=== PATIENT | female | born 1985 | race Caucasian/White ===

== ENCOUNTER 2016-09-24 21:03 | Inpatient (IN) | payer MEDICARE, OTHER ==
--- NOTE | ~2016-09-24 | PA ---
Unit #: [id number] #: [id number] Patient: LENY DAVIS [id number] [facility] [address] [place] [address] [id number] MR#: [id number] NAME: LENY DAVIS. ROOM: [facility] Age: 31 Sex: F Admission Date: 09/24/2016 : 1985 Date of Assessment: Attending Physician: Oswaldo Garcia M.D. Admitting Physician: Oswaldo Garcia M.D. Primary Care Physician: Generic Doctor Not In System PSYCHIATRIC ASSESSMENT INFORMANTS Patient, reliable; OLOP, reliable. CHIEF COMPLAINT "I need to get my head straight." HISTORY OF PRESENT ILLNESS Leny is a 31-year-old woman with a previous history of borderline personality disorder, bipolar disorder, and polysubstance dependence. She has been using heroin and spice erratically, but none recently. She says she has been off her medications and has been increasingly hopeless and helpless. Family reported that she was on Latuda and has been successful, but has been off this for about a year. She was unable to contract for safety and was admitted for stabilization. PAST PSYCHIATRIC HISTORY Previous admission in this facility as well as [facility], [facility], [facility], [facility], and the [facility] on multiple occasions. She was previously prescribed Latuda, but has been off her medication for sometime. FAMILY PSYCHIATRIC HISTORY There is a family history of schizophrenia, bipolar disorder, as well as extensive family history of alcoholism. SOCIAL HISTORY The patient is a high-school graduate, who is on long-term disability for multiple medical problems and lives in subsidized housing by herself. She lost custody of her son 4 years ago. She lives on a limited income. PAST MEDICAL HISTORY No chronic medical problems. MEDICATIONS None currently. ALLERGIES No known medication allergies. SUBSTANCE USE HISTORY As noted the patient has been using heroin and "spice," but none recently. MENTAL STATUS EXAMINATION Unit #: [id number] #: [id number] Patient: LENY DAVIS The patient presented as a disheveled woman, who appeared her stated age. Vital signs were temperature 97.7, blood pressure 121/84, respirations 19, pulse 88. Her speech was spontaneous and sparse, but easily understood. Musculoskeletal examination was calm. Her mood was irritable and labile with a congruent affect. She was alert and fully oriented. Memory and concentration were fair. Thought processes were goal directed with reports of psychosis, but no tate psychosis during my interview. She reported suicidal ideation with multiple plans and could not contract for safety. Insight and judgment, fair. Fund of knowledge and abstraction, fair. ASSETS AND LIABILITIES The patient knows local resources and presents voluntarily for treatment. Liabilities include noncompliance with treatment and erratic drug use. ADMITTING DIAGNOSES AXIS I: Bipolar disorder, mixed F31.4; polysubstance abuse. AXIS II: Borderline personality traits. AXIS III: None acute. AXIS IV: AXIS V: PSYCHIATRIC PLAN Leny was admitted and placed on suicide and psychosis precautions. She has not appear to require detox at this time. We will provide trazodone as needed for insomnia and Latuda 40 mg daily for mood stability. She will enroll in dual diagnosis groups and activities and physical examination and laboratory studies will be ordered and reviewed. TREATMENT GOALS Include resolution of SI, stabilization of mood, improvement in psychosis, improvement in insight, and improvement in coping skills. DISCHARGE PLANNING Follow up with [facility]. ESTIMATED LENGTH OF STAY 5 days. Dictated by... Oswaldo Garcia M.D. [facility]/khai TD: 09/27/2016 07:09 JOB #: [id number] Unit #: [id number] #: [id number] Patient: LENY DAVIS PSYCHIATRIC ASSESSMENT Page 1 of 1 X Oswaldo Garcia MD X PSYCHIATRIC ASSESSMENT
--- NOTE | ~2016-09-24 | DS ---
Unit #: [id number] #: [id number] Patient: LENY DAVIS [id number] [place] [address] [id number] MR#: [id number] NAME: LENY DAVIS. ROOM: [facility] Age: 31 Sex: F Admission Date: 09/24/2016 : 1985 Discharge Date: 09/28/2016 Attending Physician: Oswaldo Garcia M.D. Primary Care Physician: Generic Doctor Not In System DISCHARGE SUMMARY REASON FOR ADMISSION Leny is a 31-year-old woman with a history of borderline personality disorder, bipolar disorder, and substance abuse. She has been using heroin and spice for some time, but reports she has been off her medications with no current relapse. She was admitted for stabilization. HOSPITAL COURSE The patient was admitted and placed on suicide precautions. She did not appear to require detox and trazodone was provided for insomnia. Latuda was added for mood stability, and she enrolled in psychotherapy groups and activities. Latuda was increased to 80 mg at bedtime with good tolerance and improvement. Her mood is better with a brighter affect. On the date of discharge, she was able to contract for safety in the outpatient setting. DISCHARGE DIAGNOSES AXIS I: Bipolar mixed polysubstance abuse. AXIS II: Borderline personality traits. AXIS III: None acute. AXIS IV: AXIS V: DISCHARGE INSTRUCTIONS Follow up with [facility] for medication management and ongoing psychotherapy access. She was also invited to attend our intensive outpatient programing. DISCHARGE MEDICATIONS Latuda 80 mg at bedtime for mood stability, Vistaril 50 mg every 6 hours as needed for anxiety. CONDITION AT DISCHARGE Fair. PROGNOSIS Fair. DIET AND ACTIVITY Ad simran. Dictated by... Unit #: [id number] #: [id number] Patient: LENY DAVIS Oswaldo Garcia M.D. [facility]/khai TD: 11/22/2016 01:03 JOB #: [id number] DISCHARGE SUMMARY Page 1 of 1 X Oswaldo Garcia MD DISCHARGE SUMMARY
--- NOTE | ~2016-09-24 | PN ---
Unit #: [id number] #: [id number] Patient: LENY DAVIS [id number] [facility] [address] [place] [address] [id number] I MR#: [id number] NAME: LENY DAVIS ROOM: P261 Age: 31 Sex: F Admission Date: 09/24/2016 : 1985 Attending Physician: Oswaldo Garcia M.D. Admitting Physician: Oswaldo Garcia M.D. Primary Care Physician: Generic Doctor Not In System [facility] PROGRESS NOTES DATE 09/26/2016. DISCUSSION Leny says that she still feels very psychotic and labile this morning. She is disheveled appearance with congruent affect. She is alert and fully oriented. Memory and concentration fair. Thought processes rambling with ongoing psychosis. ASSESSMENT Bipolar mixed. PLAN Increased Latuda to 80 mg at bedtime. Dictated by... Oswaldo Garcia M.D. [facility]/gz TD: 09/27/2016 13:18 JOB #: [id number] [facility] PROGRESS NOTES Page 1 of 1 X Oswaldo Garcia MD X PROGRESS NOTE
--- NOTE | ~2016-09-24 | PN ---
Unit #: [id number] #: [id number] Patient: LENY DAVIS [id number] [facility] [address] [place] [address] [id number] I MR#: [id number] NAME: LENY DAVIS ROOM: P261 Age: 31 Sex: F Admission Date: 09/24/2016 : 1985 Attending Physician: Oswaldo Garcia M.D. Admitting Physician: Oswaldo Garcia M.D. Primary Care Physician: Generic Doctor Not In System [facility] PROGRESS NOTES DATE 09/27/2016 DISCUSSION Leny continues to be sleepy this morning and is tolerating her increased dose of Latuda from yesterday. She says her mood is better with a brighter range of affect and reduced psychosis. She appears disheveled and still stays in bed for much of the day, but has few complaints at this point. ASSESSMENT Bipolar disorder. PLAN Continue Latuda and anticipate discharge soon. Dictated by... Otto Mason/bakari TD: 09/29/2016 06:31 JOB #: [id number] [facility] PROGRESS NOTES Page 1 of 1 X Osawldo Garcia MD PROGRESS NOTE
--- NOTE | ~2016-09-24 | HP ---
Unit #: [id number] #: [id number] Patient: LENY DAVIS [id number] [place] [address] [id number] MR#: [id number] NAME: LENY DAVIS. ROOM: [facility] Age: 31 Sex: F Admission Date: 09/24/2016 : 1985 Attending Physician: Oswaldo Garcia M.D. Admitting Physician: Oswaldo Garcia M.D. Primary Care Physician: Generic Doctor Not In System HISTORY AND PHYSICAL HISTORY OF PRESENT ILLNESS Leny is a 31-year-old female admitted on 09/24/2016 to [facility] for suicidal ideation. PAST MEDICAL HISTORY None. PAST SURGICAL HISTORY None. ALLERGIES None. SOCIAL HISTORY Smokes 1/2 pack of cigarettes daily. Reports a history of binge alcohol use and history of heroin use and methamphetamine use. Most recent use of alcohol and illegal drugs was in August. She is currently single and living alone. FAMILY HISTORY Noncontributory. REVIEW OF SYSTEMS CONSTITUTIONAL: No fever or chills. HEENT: Denies any sore throat, ear pain or runny nose. CARDIOVASCULAR: Denies chest pain, irregular heart rhythm or palpitations. CHEST: Denies shortness of breath or cough. No hemoptysis. GASTROINTESTINAL: Denies nausea, vomiting, diarrhea or chronic constipation. ENDOCRINE: Denies history of increased thirst or urination. No recent significant weight loss or gain. GENITOURINARY: Denies dysuria, frequency, or hematuria. SKIN: Denies any rashes. HEMATOLOGIC: Denies history of increased bleeding or bruising. MUSCULOSKELETAL: Denies any hot, swollen joints. No generalized muscle pain. NEUROLOGIC: Denies problems with vision or speech. No frequent, severe headaches. No numbness, tingling or weakness in any extremities. Denies loss of bladder or bowel control. CURRENT MEDICATIONS None. Unit #: [id number] #: [id number] Patient: LENY DAVIS PHYSICAL EXAMINATION GENERAL: Alert, oriented, in no acute distress. VITAL SIGNS: Blood pressure 128/83, heart rate 76, respirations 18, temperature 98.2. HEIGHT: 5 feet 8. WEIGHT: 180 pounds. SKIN: Warm and dry without rash or lesion. HEENT: Normocephalic. TMs not viewed. Oral and nasal passages clear. Conjunctivae clear. PERRLA. EOMs intact. NECK: Supple without lymphadenopathy or thyromegaly. HEART: Regular rate and rhythm without murmur. LUNGS: Clear. ABDOMEN: Soft, nontender, without masses or hepatosplenomegaly. : Not done. EXTREMITIES: No evidence of cyanosis, clubbing or edema. Moves all without focal deficit. NEUROLOGICAL: Grossly within normal limits. Cranial Nerves: II: Visual torres are intact. III, IV AND : Extraocular movements are intact. Pupils are equal, round and reactive to light. V: Facial sensation is grossly normal. VII: Facial movements and expression are normal. VIII: Auditory acuity grossly intact. IX, X: Uvula is midline. Phonation is normal. XI: Patient shrugs shoulders and turns head normally. XII: Tongue protrudes in the midline. Sensory and Motor Function: Sensory and motor sensation is grossly normal. Motor: moves all extremities well. Coordination: Gait is normal. Deep Tendon Reflexes: Intact. IMPRESSION Psychiatric admission. RECOMMENDATIONS PSYCHIATRIC: Per psychiatrist. MEDICAL: No contraindications to participate in facility's activities. MEDICAL PROGNOSIS Good. MEDICAL CONDITION Stable. Dictated by... Lisa Pope/anirudh TD: 09/25/2016 17:58 JOB #: [id number] Unit #: [id number] #: [id number] Patient: LENY DAVIS HISTORY AND PHYSICAL Page 1 of 1 X BORA PALMA APRN HISTORY AND PHYSICAL
[~2016-09-24 21:03] MED LIST: BACTRIM DS TABL1 TA1 PO; ILOTYCIN1 GM OD; KEFLEX500 MG PO; KETOROLAC TROMET5 M1 OP; NO MEDICATIONS; ORUDIS75 M1 DOB; PHENERGAN25 MG PO; POLYTRIM EYE DR10 ML OP; ULTRAM PO; [UNRECOGNIZED DRUG - OTHER]
[2016-09-25 11:46] LABS: BASOPHIL% 0.4 % (0-2.5); EOSINOPHIL# 0.3 X10e3 (0-0.7); EOSINOPHIL% 3.3 % (0.0-7.0); HEMATOCRIT 41.2 % (35.0-45.0); HEMOGLOBIN 13.6 gm/dL (12.0-16.0); LYMPHOCYTE# 2.7 X10e3 (1.0-3.5); MEAN CORPUSCULAR HEMOGLOBIN 29.4 PG (28-34); MEAN CORPUSCULAR HGB CONC 33.1 g/dL (30-36); MEAN PLATELET VOLUME 7.5 FL (6.5-11.5); MONOCYTE# 0.5 X10e3 (0-1.0); NEUTROPHIL# 4.4 X10e3 (1.5-7.1); NEUTROPHIL% 56.3 % (40-75); PLATELET COUNT 377 X10e3 (140-420); RED BLOOD COUNT 4.63 X10e (3.90-5.30); RED CELL DISTRIBUTION WIDTH 13.4 % (11.0-15.5); WHITE BLOOD COUNT 7.8 X10e3 (4.0-10.5)
[2016-09-25 12:05] LABS: DIFF IND NO
[2016-09-25 12:13] LABS: ALBUMIN SERUM 3.5 g/dL (3.5-5.0); BILIRUBIN,TOTAL 0.7 mg/dL (0.2-2.0); BUN/CREATININE RATIO 13.33; CALCIUM SERUM 8.9 mg/dL (8.4-10.2); CREATININE SERUM 0.6 mg/dL (0.6-1.4); GLOM FILT RATE Estimated 121.5 mL/min (>60); POTASSIUM 3.9 mmol/L (3.5-5.1); PROTEIN TOTAL SERUM 6.4 g/dL (6.0-8.3)
[2016-09-25 12:30] LABS: AMPHETAMINE POS (NEG); BARBITURATES NEG (NEG); BENZODIAZEPINES NEG (NEG); COCAINE POS (NEG); MARIJUANA POS (NEG); OPIATES NEG (NEG); TRICYCLIC ANTIDEPRESSANTS POS (NEG); U METHADONE NEG (NEG)
== END 2016-09-28 12:45 | disposition home or self-care (01) | DRG 885 ==
LOC: P2L 21:03
PROVIDERS: Psychiatry & Neurology Psychiatry
DX: F31.60 Bipolar disorder, current episode mixed, unspecified (principal); F60.3 Borderline personality disorder; Z81.8 Family history of other mental and behavioral disorders; Z81.1 Family history of alcohol abuse and dependence; F17.210 Nicotine dependence, cigarettes, uncomplicated
CPT/HCPCS: 80053; 80307; 84703; 85025

== ENCOUNTER 2016-10-07 20:28 | Emergency (ER) | payer MEDICARE, OTHER ==
[2016-10-07 21:18] LABS: BASOPHIL% 0.5 % (0-2.5); EOSINOPHIL# 0.2 X10e3 (0-0.7); EOSINOPHIL% 2.2 % (0.0-7.0); LYMPHOCYTE# 2.7 X10e3 (1.0-3.5); LYMPHOCYTE% 34.2 % (17.0-45.0); MEAN CELL VOLUME 89.1 FL (83-96); MEAN CORPUSCULAR HEMOGLOBIN 30.4 PG (28-34); MEAN CORPUSCULAR HGB CONC 34.1 g/dL (30-36); MEAN PLATELET VOLUME 6.7 FL (6.5-11.5); MONOCYTE# 0.4 X10e3 (0-1.0); MONOCYTE% 5.5 % (3.0-12.0); NEUTROPHIL# 4.5 X10e3 (1.5-7.1); NEUTROPHIL% 57.6 % (40-75); PLATELET COUNT 393 X10e3 (140-420); RED CELL DISTRIBUTION WIDTH 13.8 % (11.0-15.5); WHITE BLOOD COUNT 7.8 X10e3 (4.0-10.5)
[2016-10-07 21:19] LABS: DIFF IND NO
[2016-10-07 21:42] LABS: BLOOD UREA NITROGEN 8 mg/dL (9-23); CALCIUM SERUM 8.9 mg/dL (8.4-10.2); CARBON DIOXIDE 23 mmol/L (22-31); CHLORIDE 106 mmol/L (100-111); CREATININE SERUM 0.8 mg/dL (0.6-1.4); GLOM FILT RATE Estimated 98.3 mL/min (>60); GLUCOSE FASTING 76 mg/dL (70-110); POTASSIUM 3.6 mmol/L (3.5-5.1); SODIUM 138 mmol/L (135-145)
[2016-10-07 21:43] LABS: AMPHETAMINE POS (NEG); BARBITURATES NEG (NEG); BENZODIAZEPINES NEG (NEG); COCAINE NEG (NEG); MARIJUANA NEG (NEG); OPIATES NEG (NEG); TRICYCLIC ANTIDEPRESSANTS NEG (NEG); U METHADONE NEG (NEG)
[2016-10-07 21:49] LABS: ALCOHOL BLOOD <5 mg/dL (0)
== END 2016-10-08 00:30 ==
LOC: CED 20:28
PROVIDERS: Emergency Medicine
DX: R44.0 Auditory hallucinations (principal); F15.10 Other stimulant abuse, uncomplicated; F31.9 Bipolar disorder, unspecified; F17.200 Nicotine dependence, unspecified, uncomplicated
CPT/HCPCS: 36415; 80048; 80307; 85025; 99285; G0480

== ENCOUNTER 2016-10-08 01:25 | Inpatient (IN) | payer MEDICARE, OTHER ==
--- NOTE | ~2016-10-08 | HP ---
Unit #: [id number] #: [id number] Patient: LENY DAVIS [id number] [facility] [address] [place] [address] [id number] I MR#: [id number] NAME: LENY DAVIS ROOM: P208 Age: 31 Sex: F Admission Date: 10/08/2016 : 1985 Attending Physician: Oswaldo Garcia M.D. Admitting Physician: Oswaldo Garcia M.D. Primary Care Physician: Generic Doctor Not In System HISTORY AND PHYSICAL HISTORY OF PRESENT ILLNESS Leny is a 31 year old admitted to [address] [place] [address] with depression and verbalizing wanting to hurt herself. The patient was seen and H and P dated 09/25/2016 was reviewed. This is current. No changes. Please see H and P dated 09/25/2016. Dictated by... Karena Whitfield P.A.-C. for Otto Armstrong/jeffery TD: 10/09/2016 07:45 JOB #: [id number] HISTORY AND PHYSICAL Page 1 of 1 X Karena Whitfield HISTORY AND PHYSICAL
--- NOTE | ~2016-10-08 | PA ---
Unit #: [id number] #: [id number] Patient: LENY DAVIS [id number] [place] [address] [id number] I MR#: [id number] NAME: LENY DAVIS. ROOM: P208 Age: 31 Sex: F Admission Date: 10/08/2016 : 1985 Date of Assessment: 10/09/2016 Attending Physician: Oswaldo Garcia M.D. Admitting Physician: Oswaldo Garcia M.D. Primary Care Physician: Generic Doctor Not In System PSYCHIATRIC ASSESSMENT DATE OF SERVICE 10/09/2016. INFORMANTS The patient, partially reliable; OLOP, reliable. CHIEF COMPLAINT Suicidal ideation. HISTORY OF PRESENT ILLNESS Leny is a 31-year-old woman with several admissions to this facility, who reported increasing helplessness, and the onset of suicidal ideation. She had also relapsed onto some drug abuse problems. She is unable to contract for safety and was readmitted for stabilization. PAST PSYCHIATRIC HISTORY Leny has had multiple admissions to this facility as well as [facility], and [facility]. She is erratically compliant with outpatient medications. FAMILY PSYCHIATRIC HISTORY There is a family history of schizophrenia, bipolar disorder, and alcoholism. SOCIAL HISTORY The patient is on long-term disability and is a high school graduate. She lives alone in housing and lost custody of her son 4 years ago. PAST MEDICAL HISTORY No chronic medical problems. MEDICATIONS None currently. ALLERGIES No known medication allergies. SUBSTANCE USE HISTORY The patient has a history of polysubstance dependence. MENTAL STATUS EXAMINATION Leny presented as a disheveled woman, appearing her stated age. She was cooperative with the examination. Her speech was spontaneous and soft, Unit #: [id number] #: [id number] Patient: LENY DAVIS but easily understood. Musculoskeletal examination was calm. Her mood was irritable with a congruent affect. She was alert and fully oriented. Her memory and concentration were fair to good. Her thought processes were goal directed with no appearance of psychosis. She did continue to report suicidal ideation and could not contract for safety outside of the hospital. Her insight and judgment were fair. Fund of knowledge and abstraction were fair. ASSETS AND LIABILITIES The patient knows local resources and presents voluntarily for treatment. Liabilities include difficulty maintaining sobriety, noncompliance with outpatient medications. ADMITTING DIAGNOSES AXIS I: Opiate dependence, amphetamine abuse, Bipolar disorder, depressed. AXIS II: Borderline personality disorder. AXIS III: None acute. AXIS IV: AXIS V: PSYCHIATRIC PLAN The patient was admitted and placed on suicide precautions and the opioid detox protocol. Latuda was restarted with the addition of Vistaril as needed for anxiety. Physical examination and laboratory studies were ordered and reviewed. TREATMENT GOALS Resolution of intoxication, resolution of SI, improvement in insight, and improvement in coping skills. DISCHARGE PLANNING Follow up with [facility] and outpatient resources. ESTIMATED LENGTH OF STAY 5 days. Dictated by... Oswaldo Garcia M.D. CHARLES/khai TD: 11/30/2016 23:26 JOB #: [id number] PSYCHIATRIC ASSESSMENT Page 1 of 1 X Oswaldo Garcia MD X PSYCHIATRIC ASSESSMENT
--- NOTE | ~2016-10-08 | DS ---
Unit #: [id number] #: [id number] Patient: LENY DAVIS [id number] [facility] [address] [place] [address] [id number] I MR#: [id number] NAME: LENY DAVIS. ROOM: [facility] Age: 31 Sex: F Admission Date: 10/08/2016 : 1985 Discharge Date: 10/11/2016 Attending Physician: Oswaldo Garcia M.D. Primary Care Physician: Generic Doctor Not In System DISCHARGE SUMMARY REASON FOR ADMISSION Leny is a 31-year-old woman with a history bipolar disorder and substance dependence. She was unable to contract for safety and was readmitted for stabilization. HOSPITAL COURSE Patient was admitted and placed on suicide precautions and on the opiate detox protocol. Latuda was restarted. She had an uneventful period of inpatient detox with no significant adverse side effects from her medication and moderate to mild detox symptomatology. On the discharge she was able to contract for safety once more in the outpatient setting. DISCHARGE DIAGNOSIS AXIS I: Opiate dependence, amphetamine abuse, bipolar disorder. AXIS II: Borderline personality disorder. AXIS III: None acute. INSTRUCTIONS Patient is to follow up with the [facility] at this facility for chemical dependence and mental health treatment. DISCHARGE MEDICATIONS Latuda 80 mg daily for mood disorder. Vistaril 50 mg every 6 hours as needed for anxiety. CONDITION ON DISCHARGE Improved. PROGNOSIS Fair. DIET AND ACTIVITY Ad simran Dictated by... Oswaldo Garcia M.D. [facility]/gz Unit #: [id number] #: [id number] Patient: LENY DAVIS TD: 11/24/2016 14:03 JOB #: [id number] DISCHARGE SUMMARY Page 1 of 1 X Oswaldo Garcia MD X DISCHARGE SUMMARY
[2016-10-08 09:42] LABS: BASOPHIL% 0.4 % (0-2.5); EOSINOPHIL# 0.3 X10e3 (0-0.7); HEMATOCRIT 39.8 % (35.0-45.0); HEMOGLOBIN 13.5 gm/dL (12.0-16.0); LYMPHOCYTE# 3.3 X10e3 (1.0-3.5); LYMPHOCYTE% 44.7 % (17.0-45.0); MEAN CELL VOLUME 88.6 FL (83-96); MEAN CORPUSCULAR HEMOGLOBIN 29.9 PG (28-34); MEAN CORPUSCULAR HGB CONC 33.8 g/dL (30-36); MEAN PLATELET VOLUME 7.2 FL (6.5-11.5); MONOCYTE# 0.5 X10e3 (0-1.0); MONOCYTE% 6.4 % (3.0-12.0); NEUTROPHIL# 3.3 X10e3 (1.5-7.1); NEUTROPHIL% 44.5 % (40-75); PLATELET COUNT 397 X10e3 (140-420); RED CELL DISTRIBUTION WIDTH 13.7 % (11.0-15.5); WHITE BLOOD COUNT 7.3 X10e3 (4.0-10.5)
[2016-10-08 09:51] LABS: DIFF IND NO
[2016-10-08 10:15] LABS: ALBUMIN SERUM 3.4 g/dL (3.5-5.0); BILIRUBIN,TOTAL 0.5 mg/dL (0.2-2.0); BUN/CREATININE RATIO 12.85; CALCIUM SERUM 8.9 mg/dL (8.4-10.2); CREATININE SERUM 0.7 mg/dL (0.6-1.4); GLOM FILT RATE Estimated 115.5 mL/min (>60); POTASSIUM 3.8 mmol/L (3.5-5.1); PROTEIN TOTAL SERUM 6.2 g/dL (6.0-8.3)
== END 2016-10-11 16:00 | DRG 897 ==
LOC: P2S 01:25
PROVIDERS: Psychiatry & Neurology Psychiatry
PROC: HZ2ZZZZ Detoxification Services for Substance Abuse Treatment (ICD-10-PCS; principal; 2016-10-08)
DX: F11.20 Opioid dependence, uncomplicated (principal); F31.89 Other bipolar disorder; F17.210 Nicotine dependence, cigarettes, uncomplicated; F15.10 Other stimulant abuse, uncomplicated; F60.3 Borderline personality disorder
CPT/HCPCS: 36415; 80048; 80053; 80307; 84703; 85025; G0480

== ENCOUNTER 2016-10-28 18:05 | Inpatient (IN) | payer MEDICARE, OTHER ==
--- NOTE | ~2016-10-28 | PA ---
Unit #: [id number] #: [id number] Patient: LENY DIANA [id number] [facility] [address] [place] [address] [id number] I MR#: [id number] NAME: LENY DIANA ROOM: 13 Age: 31 Sex: F Admission Date: 10/28/2016 : 1985 Date of Assessment: Attending Physician: Greyson Allison M.D. Admitting Physician: Greyson Allison M.D. Primary Care Physician: Generic Doctor Not In System PSYCHIATRIC ASSESSMENT INFORMANTS The patient reliability, fair; chart reliability, good. CHIEF COMPLAINT Psychosis, hearing things, and seeing things. HISTORY OF PRESENT ILLNESS Ms. Leny Diana is a 31-year-old female, admitted with the above-mentioned complaint. The patient has a history of previous admission with similar complaint, history of hearing voices, voices telling her to harm herself. The patient feels that the Bin is talking to her. The patient reported devidafne is talking to her. The patient has a history of schizophrenia. Completed 10th grade. Lots of drug activity. 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 The patient was recently kicked brother out for meth use. The patient reports that she is distant from her family. The patient has a history of numerous treatment at [facility] and [facility]. Currently, having suicidal ideation and command hallucination. The patient also admitted using amphetamine. Needing inpatient admission at this time for psychiatric stabilization. PAST PSYCHIATRIC HISTORY Remarkable for history of multiple treatment at [facility] in 2012 and 2016, last admission 10/13/2016. FAMILY HISTORY AND SOCIAL HISTORY Poor support system. No history of any abuse. MEDICAL HISTORY Unremarkable for any chronic medical condition. Musculoskeletal; muscle strength and tone, no atrophy or abnormal movement. Gait normal. MEDICATION HISTORY The patient is on Latuda and Vistaril. ALLERGIES No known drug allergies. SUBSTANCE ABUSE HISTORY The patient reported tobacco use, age of onset 12; alcohol, age of onset 11; marijuana, age of onset 13; crack cocaine, age of onset 17; opioid, age of onset 27; methamphetamine, age of onset 27. The patient also reported history of IV drug use, history of hepatitis, blackouts. Unit #: [id number] #: [id number] Patient: LENY DIANA REVIEW OF SYSTEMS HEENT: Eyes, clear. Ears, nose, mouth, and throat; clear. CARDIOVASCULAR: Unremarkable. RESPIRATORY: Unremarkable. GI: Unremarkable. : Unremarkable. SKIN: Unremarkable. LYMPH NODE: Unremarkable. NEUROLOGIC: Unremarkable. ENDOCRINE: Unremarkable. HEMATOLOGIC: Unremarkable. ALLERGIC/IMMUNOLOGIC: Unremarkable. MUSCULOSKELETAL: Muscle strength and tone, no atrophy or abnormal movement. Gait normal. MENTAL STATUS EXAMINATION CONSTITUTIONAL: Measurement of vital signs; temperature 98.4, pulse 109, respirations 20, oxygen saturation 100%, and blood pressure 122/81. Height is 5 feet 7 inches, weight 195 pounds. GENERAL APPEARANCE: The patient dressed casually. No facial deformity noted. MUSCULOSKELETAL: Please see above. PSYCHIATRIC EXAMINATION Description of speech, slow. Description of thought process; circumstantial, guarded, paranoid, delusional, attending to internal stimuli, suicidal ideation, command hallucination, substance abuse. Description of the patient's judgment; concerning everyday activity, poor. Social situation, poor. Concerning psychiatric condition, poor. Complete mental status examination; oriented in time, place, and person. Recent and remote memory, poor. Attention span and concentration, fair. Language, able to name object and repeat phrases. Fund of knowledge, aware of current event and passive vocabulary intact. Mood and affect, sad and dysphoric. Insight and judgment, fair to poor. ASSETS AND LIABILITIES Assets; the patient articulate and able to take care of her ADL. Liability; history of depression, psychosis, schizophrenia, substance abuse. ADMITTING DIAGNOSES Psychiatric: 1. Schizophrenia, chronic paranoid type, F20.0. 2. Amphetamine use disorder, moderate, F15.20. Secondary diagnosis: Deferred. Medical diagnosis: None. Stressors: Psychosocial stressors. PSYCHIATRIC PLAN AND TREATMENT GOAL 1. Advised to admit the patient on the inpatient unit. Provide safe, supportive, and structured environment. 2. Ordered labs; CBC, CMP, UA, and UDS. 3. Precaution for aggression, psychosis. 4. The patient to attend all the programing on the inpatient unit, group Unit #: [id number] #: [id number] Patient: LENY DIANA therapy, individual therapy, medication management. Advised to resume home medication; Latuda 80 mg at bedtime and Vistaril 50 mg q.6 hours p.r.n. If needed, consider further adjustment of medication. Treatment goal to attain euthymic mood, gain insight into her problem, and learn coping skills. DISCHARGE PLAN Plan to stabilize the patient and consider followup in outpatient program. ESTIMATED LENGTH OF STAY 5 days. Dictated by... Otto Anna/khai TD: 10/30/2016 02:33 JOB #: [id number] PSYCHIATRIC ASSESSMENT Page 1 of 1 X Greyson Allison MD X PSYCHIATRIC ASSESSMENT
--- NOTE | ~2016-10-28 | PN ---
Unit #: [id number] #: [id number] Patient: LENY DIANA [id number] [facility] [address] [place] [address] [id number] I MR#: [id number] NAME: LENY DIANA. ROOM: 13 Age: 31 Sex: F Admission Date: 10/28/2016 : 1985 Attending Physician: Greyson Allison M.D. Admitting Physician: Greyson Allison M.D. Primary Care Physician: Generic Doctor Not In System [facility] PROGRESS NOTES DATE OF SERVICE 10/29/2016 DISCUSSION Ms. Leny Diana is a 31-year-old female seen on 10/29/2016. The patient interviewed, chart reviewed. Obtained information from nursing staff. The patient continues to be isolative, guarded, flat affect. The patient reported hearing voices. Still having suicidal ideation. Compliant with medication. Complete Review of Systems: Unremarkable. MENTAL STATUS EXAMINATION General Appearance: The patient dressed casually. Attention span, concentration: Poor. Oriented in place and person. Mood and affect labile. Speech: Monotone. Thought process: Circumstantial. The patient guarded, paranoid, suicidal ideation. Recent and remote memory: Poor. Insight and judgment: Poor. DIAGNOSES 1. Psychosis not otherwise specified. 2. Depressive disorder not otherwise specified. ASSESSMENT/PLAN Advised to continue with current medication and therapeutic protocol. If needed, consider further adjustment of medication. Dictated by... Otto Anna/jeffery TD: 10/30/2016 07:06 JOB #: [id number] Unit #: [id number] #: [id number] Patient: LENY DIANA [facility] PROGRESS NOTES Page 1 of 1 X Greyson Allison MD PROGRESS NOTE
--- NOTE | ~2016-10-28 | CO ---
Unit #: [id number] #: [id number] Patient: LENY DAVIS [id number] [place] [address] [id number] MR#: [id number] NAME: LENY DAVIS ROOM: P113 Age: 31 Sex: F Admission Date: 10/28/2016 : 1985 Attending Physician: Greyson Allison M.D. Primary Care Physician: Generic Doctor Not In System Consultation Date: 10/29/2016 CONSULTATION REPORT SUBJECTIVE Leny is a 31-year-old who reported that she had stepped on glass 4 or 5 days prior to admission. This was addressed under her H and P dated 10/29/2016. Please see H and P dated 10/29/2016. Dictated by... Karena Whitfield P.A.-C. for Otto Armstrong/khai TD: 11/03/2016 01:18 JOB #: [id number] CONSULTATION REPORT Page 1 of 1 X Karena Whitfield CONSULTATION REPORT
--- NOTE | ~2016-10-28 | DS ---
Unit #: [id number] #: [id number] Patient: TANI DAVIS [id number] [facility] [address] [place] [address] [id number] I MR#: [id number] NAME: TANI DAVIS. [facility] Age: 31 Sex: F Admission Date: 10/28/2016 : 1985 Discharge Date: 11/01/2016 Attending Physician: Greyson Allison M.D. Primary Care Physician: Generic Doctor Not In System DISCHARGE SUMMARY REASON FOR ADMISSION Aggression, psychosis, and substance abuse. DIAGNOSTIC STUDIES LABORATORY RESULTS: Urine drug screen positive for benzodiazepine, cocaine, amphetamine, and marijuana. HOSPITAL COURSE The patient was admitted to inpatient unit on 10/28/2016 and discharged on 11/01/2016. The patient was treated on the inpatient unit with group therapy, individual therapy, medication management, detox protocol, and detox monitoring. The patient responded well with the above modalities of treatment and continued on her home medication. Subsequently, the patient was discharged with a plan to follow up in outpatient program. DISCHARGE MEDICATIONS Vistaril 50 mg q.6 hours p.r.n. for anxiety and Latuda 80 mg at bedtime for psychosis and mood stabilization. DISCHARGE DIAGNOSES Psychiatric: Schizophrenia, chronic paranoid type, F20.0; amphetamine use disorder, moderate, F15.20; cocaine use disorder, severe, F14.20; and cannabis abuse, moderate, F12.20. Secondary diagnosis: Deferred. Medical diagnosis: Obesity. Stressors: Psychosocial stressors. DISCHARGE INSTRUCTIONS The patient to follow up in outpatient program as per social insurance adviser. CONDITION ON DISCHARGE The patient was pleasant and cooperative. Denied any psychotic symptoms or any suicidal ideation. PROGNOSIS Guarded. DIET AND ACTIVITY As tolerated. Unit #: [id number] #: [id number] Patient: TANI DAVIS Dictated by... Greyson Allison M.D. SZC/debbil TD: 11/01/2016 18:22 JOB #: [id number] DISCHARGE SUMMARY Page 1 of 1 X Greyson Allison MD X DISCHARGE SUMMARY
--- NOTE | ~2016-10-28 | DS ---
Unit #: [id number] #: [id number] Patient: TANI DAVIS [id number] [place] [address] [id number] I MR#: [id number] NAME: TANI DAVIS. ROOM: [facility] Age: 31 Sex: F Admission Date: 10/28/2016 : 1985 Discharge Date: Attending Physician: Greyson Allison M.D. Primary Care Physician: Generic Doctor Not In System DISCHARGE SUMMARY REASON FOR ADMISSION Psychosis and schizophrenia. DIAGNOSTIC STUDIES LABORATORY RESULTS: Unremarkable. HOSPITAL COURSE The patient was admitted to inpatient unit on 10/07/2016 and discharged on 10/21/2016. The patient was treated with group therapy, individual therapy, medication management. The patient responded well with the above modalities of treatment. The patient was continued on her medication of Latuda, Vistaril, Desyrel. Subsequently, the patient was discharged with a plan to follow up in outpatient program. DISCHARGE MEDICATIONS Latuda 80 mg daily for psychosis and mood stabilization, Vistaril 50 mg as needed p.r.n. for anxiety, Desyrel 100 mg at bedtime for sleep p.r.n. DISCHARGE DIAGNOSES Psychiatric: 1. Schizophrenia, chronic paranoid type, F20.0. 2. Amphetamine use disorder, moderate, F15.20. Secondary diagnosis: Deferred. Medical diagnosis: None. Stressors: Psychosocial stressors. DISCHARGE INSTRUCTIONS The patient to follow up in outpatient clinic as per rn social work. CONDITION ON DISCHARGE The patient was pleasant and cooperative. Denied any psychotic symptom or any suicidal ideation. PROGNOSIS Guarded. DIET AND ACTIVITY As tolerated. Dictated by... Unit #: [id number] #: [id number] Patient: TANI DAVIS Greyson Allison M.D. SZC/modl TD: 10/29/2016 22:28 JOB #: [id number] DISCHARGE SUMMARY Page 1 of 1 X Greyson Allison MD DISCHARGE SUMMARY
--- NOTE | ~2016-10-28 | PN ---
Unit #: [id number] #: [id number] Patient: LENY DIANA [id number] [facility] [address] [place] [address] [id number] I MR#: [id number] NAME: LENY DIANA. ROOM: 13 Age: 31 Sex: F Admission Date: 10/28/2016 : 1985 Attending Physician: Greyson Allison M.D. Admitting Physician: Greyson Allison M.D. Primary Care Physician: Generic Doctor Not In System [facility] PROGRESS NOTES DATE 10/31/2016 DISCUSSION Ms. Leny Diana is a 31-year-old female seen on 10/31/2016. The patient interviewed, chart reviewed. Obtained information from nursing staff. The patient was compliant and cooperative. Mood sad, dysphoric, flat affect, guarded. The patient reported mood is getting better denied any side effects from medication. The patient's vital signs 97.3, 88, 14, 111/79. The patient continues to be seclusive, isolative, guarded, flat affect, intermittently pacing on the unit, anxious, requesting Vistaril p.r.n. was affective. Complete review of systems unremarkable. MENTAL STATUS EXAMINATION General appearance, the patient dressed casually. Attention span and concentration poor. Oriented to time, place and person. Mood and affect labile. Speech rapid. Thought process circumstantial. The patient reported having anxiety, depression, passive SI. Denied any active SI or plan, guarded. Recent and remote memory poor. Insight and judgement poor. DIAGNOSES Schizophrenia chronic paranoid type Amphetamine use disorder moderate ASSESSMENT/PLAN Advise to continue with current medication and therapeutic protocol. If needed consider further adjustment of medication. Dictated by... Otto Anna/natty TD: 11/01/2016 05:23 JOB #: [id number] Unit #: [id number] #: [id number] Patient: LENY DIANA [facility] PROGRESS NOTES Page 1 of 1 X Greyson Allison MD X PROGRESS NOTE
--- NOTE | ~2016-10-28 | PN ---
Unit #: [id number] #: [id number] Patient: LENY DIANA [id number] [facility] [address] [place] [address] [id number] I MR#: [id number] NAME: LENY DIANA. ROOM: P113 Age: 31 Sex: F Admission Date: 10/28/2016 : 1985 Attending Physician: Greyson Allison M.D. Admitting Physician: Greyson Allison M.D. Primary Care Physician: Generic Doctor Not In System [facility] PROGRESS NOTES DATE OF SERVICE: 10/30/2016 DISCUSSION Ms. Leny Diana is a 31-year-old female, seen on 10/30/2016. The patient interviewed, chart reviewed, and obtained information from nursing staff. The patient is compliant and cooperative. Mood is sad, dysphoric, flat affect, guarded and paranoid, and depressed. Vital signs; temperature 97.4, pulse 114, respirations 16, blood pressure 110/60. The patient continues to be seclusive, isolative, flat affect, withdrawn, sad, and depressed. REVIEW OF SYSTEMS Complete review of systems unremarkable. MENTAL STATUS EXAMINATION General appearance, the patient dressed casually. Attention span and concentration fair. Oriented in place and person. Mood and affect, sad, depressed, suicidal ideation, guarded, and paranoid. Recent and remote memory, poor. Insight and judgment, poor. DIAGNOSES 1. Schizophrenia, chronic, paranoid type. 2. Amphetamine use disorder, moderate. ASSESSMENT AND PLAN Advised to continue with current medication and therapeutic protocol. If needed, consider further adjustment of medication. Dictated by... Otto Anna/khai TD: 11/01/2016 03:01 JOB #: [id number] Unit #: [id number] #: [id number] Patient: LENY DIANA PROGRESS NOTES Page 1 of 1 X Greyson Allison MD PROGRESS NOTE
--- NOTE | ~2016-10-28 | HP ---
Unit #: [id number] #: [id number] Patient: LENY DAVIS [id number] [place] [address] [id number] I MR#: [id number] NAME: LENY DAVIS. ROOM: 13 Age: 31 Sex: F Admission Date: 10/28/2016 : 1985 Attending Physician: Greyson Allison M.D. Admitting Physician: Greyson Allison M.D. Primary Care Physician: Generic Doctor Not In System HISTORY AND PHYSICAL HISTORY OF PRESENT ILLNESS Leny is a 31 year old admitted to [address] [place] [address] reporting auditory hallucinations. PAST MEDICAL HISTORY 1. Long history of illicit substance abuse to include spice, heroin, crack cocaine and pain pills. She also has a history of IV drug use. 2. Hepatitis C. PAST SURGICAL HISTORY Nothing reported. ALLERGIES No known drug allergies. SOCIAL HISTORY Smokes one pack per day. Drinks alcohol on occasion. Admits to a long history of illicit substance abuse to include IV drugs. FAMILY HISTORY Medically noncontributory. REVIEW OF SYSTEMS CONSTITUTIONAL: No fever or chills. HEENT: Denies any sore throat, ear pain or runny nose. CARDIOVASCULAR: Denies chest pain, irregular heart rhythm or palpitations. CHEST: Denies shortness of breath or cough. No hemoptysis. GASTROINTESTINAL: Denies nausea, vomiting, diarrhea or chronic constipation. ENDOCRINE: Denies history of increased thirst or urination. No recent significant weight loss or gain. GENITOURINARY: Denies dysuria, frequency, or hematuria. SKIN: She does report that she stepped on glass four to five days prior to this admission. She has been trying to dig the piece out of the bottom of her foot since that time. She reports no increase temperatures and has no difficulty ambulating. HEMATOLOGIC: Denies history of increased bleeding or bruising. MUSCULOSKELETAL: Denies any hot, swollen joints. No generalized muscle pain. NEUROLOGIC: Denies problems with vision or speech. No frequent, severe headaches. No numbness, tingling or weakness in any extremities. Denies loss of bladder or bowel control. Unit #: [id number] #: [id number] Patient: LENY DAVIS CURRENT MEDICATIONS 1. Vistaril p.r.n. 2. Milk of Magnesia p.r.n. 3. Maalox p.r.n. 4. Tylenol p.r.n. 5. Desyrel p.r.n. 6. Latuda 80 mg q.h.s. 7. Nicotine patch 14 mg q day PHYSICAL EXAMINATION GENERAL: Alert, well-nourished, appearing much much older than her stated age of 31, in no apparent distress. VITAL SIGNS: Blood pressure 122/80, heart rate 80, respirations 16, temperature 98.6. WEIGHT: 195 pounds. HEIGHT: 5'7". SKIN: Warm and dry without rash. She has a small open area along the ball of her left foot. There is no increased redness or swelling noted. No foreign body is noted. HEENT: Normocephalic. TMs not viewed. Oral and nasal passages clear. Conjunctivae clear. Pupils equal, round and reactive to light and accommodation. Extraocular movements intact. NECK: Supple without lymphadenopathy or thyromegaly. HEART: Regular rate and rhythm without murmur. LUNGS: Clear. ABDOMEN: Soft, nontender. : Not done. EXTREMITIES: No evidence of cyanosis, clubbing or edema. Moves all extremities without focal deficit. NEUROLOGICAL: Grossly within normal limits. Cranial Nerves: II: Visual torres are intact. III, IV AND : Extraocular movements are intact. Pupils are equal, round and reactive to light. V: Facial sensation is grossly normal. VII: Facial movements and expression are normal. VIII: Auditory acuity grossly intact. IX, X: Uvula is midline. Phonation is normal. XI: Patient shrugs shoulders and turns head normally. XII: Tongue protrudes in the midline. Sensory and Motor Function: Sensory and motor sensation is grossly normal. Motor: moves all extremities well. Coordination: Gait is normal. Deep Tendon Reflexes: Intact. IMPRESSION 1. Psychiatric admission 2. The patient reports stepping on glass four to five days prior to admission. She thinks she may still have a piece of glass in her foot. 3. Keep the foot clean with soap and water. She knows that she is can soak it in the sink in her room. No plans to look for or remove the glass in her foot. MEDICAL PROGNOSIS Good. MEDICAL CONDITION Stable. Unit #: [id number] #: [id number] Patient: LENY DAVIS Veda epps. Karena Whitfield P.A.-C. for Otto Armstrong/natty TD: 10/29/2016 22:10 JOB #: [id number] HISTORY AND PHYSICAL Page 1 of 1 X Karena Whitfield PA X HISTORY AND PHYSICAL
== END 2016-11-01 10:10 | disposition home or self-care (01) | DRG 885 ==
LOC: P1S 18:05
DX: F20.0 Paranoid schizophrenia (principal); F14.20 Cocaine dependence, uncomplicated; F15.20 Other stimulant dependence, uncomplicated; B19.20 Unspecified viral hepatitis C without hepatic coma; F17.210 Nicotine dependence, cigarettes, uncomplicated; F12.20 Cannabis dependence, uncomplicated; E66.9 Obesity, unspecified; Z68.30 Body mass index [BMI] 30.0-30.9, adult

== ENCOUNTER 2016-11-12 13:00 | Inpatient (IN) | payer MEDICARE, OTHER ==
--- NOTE | ~2016-11-12 | DS ---
Unit #: [id number] #: [id number] Patient: TANI DAVIS [id number] [facility] [address] [place] [address] [id number] I MR#: [id number] NAME: TANI DAVIS. ROOM: P122 Age: 31 Sex: F Admission Date: 11/12/2016 : 1985 Discharge Date: 11/15/2016 Attending Physician: Greysno Allison M.D. DISCHARGE SUMMARY REASON FOR ADMISSION Hallucination, depression, and substance abuse. DIAGNOSTIC STUDIES LABORATORY RESULTS: Remarkable for urine drug screen positive for benzodiazepine, amphetamine, and marijuana. HOSPITAL COURSE The patient was admitted to [facility] and treated with group therapy, individual therapy, and medication management. The patient responded well with the above modalities of treatment. Subsequently, the patient was discharged with a plan to follow up in outpatient program. DISCHARGE MEDICATIONS Trazodone 100 mg at bedtime for sleep, Neurontin 300 mg t.i.d. for anxiety, Latuda 80 mg daily for mood stabilization and psychosis, and Vistaril 50 mg q.6 hours p.r.n. for severe anxiety. 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 Secondary diagnosis: Deferred. Medical diagnosis: None. Stressors: Psychosocial stressors. DISCHARGE INSTRUCTIONS The patient to follow up in outpatient clinic as per administrator social welfare. CONDITION ON DISCHARGE The patient was pleasant and cooperative. Denied any psychotic symptom or any suicidal ideation. PROGNOSIS Guarded. DIET AND ACTIVITY As tolerated. Unit #: [id number] #: [id number] Patient: TANI DAVIS Dictated by... Greyson Allison M.D. SZC/debbil TD: 11/28/2016 17:30 JOB #: [id number] DISCHARGE SUMMARY Page 1 of 1 X Greyson Allison MD X DISCHARGE SUMMARY
--- NOTE | ~2016-11-12 | HP ---
Unit #: [id number] #: [id number] Patient: TANI DAVIS [id number] [place] [address] [id number] I MR#: [id number] NAME: TANI DAVIS. ROOM: P122 Age: 31 Sex: F Admission Date: 11/12/2016 : 1985 Attending Physician: Greyson Allison M.D. Admitting Physician: Greyson Allison M.D. Primary Care Physician: Primary Care Physician No HISTORY AND PHYSICAL HISTORY OF PRESENT ILLNESS The patient is a 31-year-old female who states she is here due to paranoid schizophrenia. PAST MEDICAL HISTORY None. PAST SURGICAL HISTORY None. ALLERGIES None. SOCIAL HISTORY Positive for smoking, alcohol and drugs. FAMILY HISTORY Noncontributory. REVIEW OF SYSTEMS CONSTITUTIONAL: No fever or chills. HEENT: Denies any sore throat, ear pain or runny nose. CARDIOVASCULAR: Denies chest pain, irregular heart rhythm or palpitations. CHEST: Denies shortness of breath or cough. No hemoptysis. GASTROINTESTINAL: Denies nausea, vomiting, diarrhea or chronic constipation. ENDOCRINE: Denies history of increased thirst or urination. No recent significant weight loss or gain. GENITOURINARY: Denies dysuria, frequency, or hematuria. SKIN: Denies any rashes. HEMATOLOGIC: Denies history of increased bleeding or bruising. MUSCULOSKELETAL: Denies any hot, swollen joints. No generalized muscle pain. NEUROLOGIC: Denies problems with vision or speech. No frequent, severe headaches. No numbness, tingling or weakness in any extremities. Denies loss of bladder or bowel control. CURRENT MEDICATIONS 1. Latuda 80 mg p.o. q.h.s. 2. Vistaril 50 mg p.o. q. 6 hours p.r.n. 3. Trazodone 100 mg p.o. q.h.s. 4. Neurontin 300 mg p.o. t.i.d. Unit #: [id number] #: [id number] Patient: TANI DAVIS PHYSICAL EXAMINATION GENERAL: Alert, oriented, in no acute distress. VITAL SIGNS: Blood pressure 102/70, heart rate 75, respirations 18. HEIGHT: 5 feet 8 inches. WEIGHT: 180 pounds. SKIN: Warm and dry without rash or lesion. Multiple tattoos right ankle, midline abdomen, right shoulder. HEENT: Normocephalic. TMs not viewed. Oral and nasal passages clear. Conjunctivae clear. PERRLA. EOMs intact. NECK: Supple without lymphadenopathy or thyromegaly. HEART: Regular rate and rhythm without murmur. LUNGS: Clear. ABDOMEN: Soft, nontender, without masses or hepatosplenomegaly. : Not done. EXTREMITIES: No evidence of cyanosis, clubbing or edema. Moves all without focal deficit. NEUROLOGICAL: Grossly within normal limits. Cranial Nerves: II: Visual torres are intact. III, IV AND : Extraocular movements are intact. Pupils are equal, round and reactive to light. V: Facial sensation is grossly normal. VII: Facial movements and expression are normal. VIII: Auditory acuity grossly intact. IX, X: Uvula is midline. Phonation is normal. XI: Patient shrugs shoulders and turns head normally. XII: Tongue protrudes in the midline. Sensory and Motor Function: Sensory and motor sensation is grossly normal. Motor: moves all extremities well. Coordination: Gait is normal. Deep Tendon Reflexes: Intact. IMPRESSION Psychiatric admission. RECOMMENDATIONS PSYCHIATRIC: Per psychiatrist. MEDICAL: No contraindications to participate in facility's activities. MEDICAL PROGNOSIS Good. Dictated by... Lisa Diaz/anirudh TD: 11/13/2016 18:58 JOB #: [id number] Unit #: [id number] #: [id number] Patient: TANI DAVIS HISTORY AND PHYSICAL Page 1 of 1 X Myra Manning APR X HISTORY AND PHYSICAL
--- NOTE | ~2016-11-12 | DS ---
Unit #: [id number] #: [id number] Patient: TANI DAVIS [id number] [place] [address] [id number] I MR#: [id number] NAME: TANI DAVIS. ROOM: P122 Age: 31 Sex: F Admission Date: 11/12/2016 : 1985 Discharge Date: 11/15/2016 Attending Physician: Greyson Alilson M.D. Primary Care Physician: Primary Care Physician No DISCHARGE SUMMARY REASON FOR ADMISSION Depression and psychosis. DIAGNOSTIC STUDIES LABORATORY RESULTS: Remarkable for urine drug screen positive for benzodiazepine, cocaine, amphetamine, and marijuana. HOSPITAL COURSE The patient was admitted to inpatient unit on 11/12/2016 and discharged on 11/15/2016. The patient was treated with behavior management, expressive therapy, medication management, psychoeducation, and psychotherapy. The patient responded well with the above modalities of treatment. The patient denied any suicidal or homicidal ideation. Denied any psychotic symptom. Compliant with medication. Maintained safe behavior during her stay. Subsequently, the patient was discharged with a plan to follow up in outpatient program. DISCHARGE MEDICATIONS Latuda 80 mg daily for mood stabilization, Vistaril 50 mg q.6 hours p.r.n. for anxiety, Desyrel 100 mg at bedtime for sleep, and Neurontin 300 mg t.i.d. for severe anxiety and mood stabilization. DISCHARGE DIAGNOSES Psychiatric: 1. Schizophrenia, chronic paranoid type, F20.0. 2. Amphetamine use disorder, moderate, F15.20. 3. Sedative-hypnotic use disorder, F13.20. 4. Cocaine use disorder, severe, F14.20. 5. Cannabis abuse disorder, moderate, F12.20. Secondary diagnosis: Deferred. Medical diagnosis: None. Stressors: Psychosocial stressors. DISCHARGE INSTRUCTIONS The patient is to follow up in outpatient clinic as per social security assessor. CONDITION ON DISCHARGE The patient was pleasant and cooperative. Denied any psychotic symptom or any suicidal ideation. PROGNOSIS Unit #: [id number] #: [id number] Patient: TANI DAVIS Guarded. DIET AND ACTIVITY As tolerated. Dictated by... Greyson Alliosn M.D. SZKareem/khai TD: 11/16/2016 03:51 JOB #: [id number] DISCHARGE SUMMARY Page 1 of 1 X Greyson Allison MD DISCHARGE SUMMARY
--- NOTE | ~2016-11-12 | PN ---
Unit #: [id number] #: [id number] Patient: LENY DIANA [id number] [facility] [address] [place] [address] [id number] MR#: [id number] NAME: LENY DIANA. ROOM: P122 Age: 31 Sex: F Admission Date: 11/12/2016 : 1985 Attending Physician: Greyson Allison M.D. Admitting Physician: Greyson Allison M.D. Primary Care Physician: Primary Care Physician Melissa CARBALLO NOTES DATE OF SERVICE: 11/13/2016 DISCUSSION Ms. Leny Diana is a 31-year-old female, seen on 11/13/2016. The patient interviewed, chart reviewed, and obtained information from nursing staff. The patient was compliant and cooperative. Mood is sad, dysphoric, flat affect, withdrawn, isolative, guarded, still endorsing suicidal ideation as well as hallucination. REVIEW OF SYSTEMS Complete review of systems unremarkable. MENTAL STATUS EXAMINATION General appearance; the patient's hygiene and grooming, poor, withdrawn, isolative. Attention and concentration, fair. Oriented in place and person. Mood and affect, sad, and depressed. Speech, monotone. Thought process, concrete. The patient denied any thoughts of harming self or others, but guarded. Recent and remote memory, poor. Insight and judgment, poor. DIAGNOSES 1. Schizophrenia, chronic paranoid type. 2. Amphetamine abuse disorder, moderate. ASSESSMENT AND PLAN Advised to continue with current medication and therapeutic protocol. If needed, consider further adjustment of medication. Dictated by... Otto Anna/khai TD: 11/15/2016 01:41 JOB #: [id number] Unit #: [id number] #: [id number] Patient: LENY DIANA ERIK CARBALLO NOTES Page 1 of 1 X Greyson Allison MD PROGRESS NOTE
--- NOTE | ~2016-11-12 | PN ---
Unit #: [id number] #: [id number] Patient: LENY DIANA [id number] [facility] [address] [place] [address] [id number] I MR#: [id number] NAME: LENY DIANA. ROOM: P122 Age: 31 Sex: F Admission Date: 11/12/2016 : 1985 Attending Physician: Greyson Allison M.D. Admitting Physician: Greyson Allison M.D. Primary Care Physician: Melissa Primary Care Physician ERIK PROGRESS NOTES DATE OF SERVICE 11/14/2016 DISCUSSION Ms. Leny Diana is a 31-year-old female seen on 11/14/2016. Patient interviewed, chart reviewed, and obtained information from nursing staff. Patient compliant and cooperative. Mood sad, dysphoric. Vital signs: 97.6, 60, 16, and 84/53. Patient did not show any aggressive behavior. Compliant and cooperative. REVIEW OF SYSTEMS Complete review of systems unremarkable. MENTAL STATUS EXAMINATION GENERAL APPEARANCE: Patient dressed casually. ATTENTION SPAN AND CONCENTRATION: Fair. ORIENTATION: Oriented in time, place, and person. MOOD AND AFFECT: Sad, dysphoric. Flat affect. SPEECH: Monotone. THOUGHT PROCESS: [place]. Patient denied any hallucinations or any self-harming behavior. Mood was labile. RECENT AND REMOTE MEMORY: Poor. INSIGHT AND JUDGEMENT: Poor. DIAGNOSES 1. Amphetamine abuse, moderate. 2. Psychosis, NOS. 3. History of schizophrenia. ASSESSMENT/PLAN Advised to continue with current medication and therapeutic protocol. If needed, consider further adjustment of medication. Dictated by... Otto Anna/tyrell TD: 11/16/2016 10:03 JOB #: [id number] Unit #: [id number] #: [id number] Patient: LENY DIANA ERIK PROGRESS NOTES Page 1 of 1 X Greyson Allison MD PROGRESS NOTE
--- NOTE | ~2016-11-12 | PA ---
Unit #: [id number] #: [id number] Patient: LENY DIANA [id number] [facility] [address] [place] [address] [id number] I MR#: [id number] NAME: LENY DIANA. ROOM: P122 Age: 31 Sex: F Admission Date: 11/12/2016 : 1985 Date of Assessment: Attending Physician: Greyson Allison M.D. Admitting Physician: Greyson Allison M.D. Primary Care Physician: Primary Care Physician No PSYCHIATRIC ASSESSMENT INFORMANT The patient reliability, fair; chart reliability, good. CHIEF COMPLAINT Depression. HISTORY OF PRESENT ILLNESS Ms. Leny Diana is a 31-year-old white female, seen on , presented with the above-mentioned complaint. The patient lives alone, presented with methamphetamine abuse. Reported increase in depression, hallucination, auditory hallucination, voices telling her to kill herself. The patient also reported paranoid ideation, reported attending to internal stimuli, guarded, and paranoid, but denied any homicidal ideation. The patient is currently on Latuda, Vistaril, and trazodone. The patient reported history of marijuana abuse, age of onset 13; opioid, age of onset 25; amphetamine, age of onset 27. The patient denied any history of blackout, history of hepatitis. No history of withdrawal symptoms. No history of any IV drug use. Needing inpatient admission at this time for psychiatric stabilization. PAST PSYCHIATRIC HISTORY Remarkable for history of [facility] treatment at [facility] and the last one was in 10/28/2016. FAMILY HISTORY AND SOCIAL HISTORY Poor support system. No history of any abuse. No legal charges. MEDICAL HISTORY Unremarkable for any chronic medical illness. Musculoskeletal; muscle strength and tone, no atrophy or abnormal movement. Gait normal. MEDICATIONS HISTORY The patient is on Latuda and Vistaril, noncompliant with medication. ALLERGIES No known drug allergies. SUBSTANCE ABUSE HISTORY Please see above. REVIEW OF SYSTEMS HEENT: Eyes, clear. Ears, nose, mouth, and throat; clear. CARDIOVASCULAR: Unremarkable. Unit #: [id number] #: [id number] Patient: LENY DIANA RESPIRATORY: Unremarkable. GI: Unremarkable. : Unremarkable. SKIN: Unremarkable. LYMPH NODE: Unremarkable. NEUROLOGIC: Unremarkable. ENDOCRINE: Unremarkable. HEMATOLOGIC: Unremarkable. ALLERGIC/IMMUNOLOGIC: Unremarkable. MUSCULOSKELETAL: Muscle strength and tone, no atrophy or abnormal movement. Gait normal. MENTAL STATUS EXAMINATION CONSTITUTIONAL: Measurement of vital signs; temperature 97.7, pulse 76, respirations 20, blood pressure 102/66, height 5 feet 8 inches, weight is 180 pounds. General appearance; the patient dressed casually. No facial deformity noted. Musculoskeletal; please see above. PSYCHIATRIC EXAMINATION Description of speech; regular rate. Description of thought process, goal directed. Description of association, intact. Description of abnormal psychotic thinking; reported hallucination, voices telling her to harm herself, but denied any homicidal ideation. Denied any visual hallucination, substance abuse. Description of the patient's judgment, concerning everyday activity, poor. Social situation, poor. Concerning psychiatric condition, poor. Complete mental status examination; oriented in time, place, and person. Recent and remote memory, fair. Attention span and concentration, fair. Language, able to name object and repeat phrases. Fund of knowledge, aware of current event and past history. Vocabulary, intact. Mood and affect, sad, and depressed. Insight and judgment, fair to poor. ASSETS AND LIABILITIES Assets; the patient articulate, able to take care of her ADL. Liability, history of substance abuse and depression. ADMITTING DIAGNOSES Psychiatric: Schizophrenia, chronic paranoid type, F20.0; amphetamine abuse disorder, moderate, F15.20. Secondary diagnosis: Deferred. Medical diagnosis: None. Stressors: Psychosocial stressors. PSYCHIATRIC PLAN AND TREATMENT GOAL 1. Advised to admit the patient on the inpatient unit. Provide safe, supportive, and structured environment. 2. Ordered labs; CBC, CMP, UA, UDS, test. 3. Advised to resume home medication precaution for aggression, self-harm, psychosis. 4. The patient to attend all the programing, group therapy, individual therapy, family session if possible. 5. Treatment goal to attain euthymic mood, gain insight into her problem, and learn coping skills. If needed, consider further adjustment of medication. Unit #: [id number] #: [id number] Patient: LENY DIANA DISCHARGE PLAN Plan to stabilize the patient and consider followup in outpatient program. ESTIMATED LENGTH OF STAY 2 weeks. Dictated by... Otto Anna/khai TD: 11/14/2016 05:42 JOB #: [id number] PSYCHIATRIC ASSESSMENT Page 1 of 1 X Greyson Allison MD PSYCHIATRIC ASSESSMENT
== END 2016-11-15 10:40 | DRG 885 ==
LOC: P1S 18:42
DX: F20.0 Paranoid schizophrenia (principal); F13.20 Sedative, hypnotic or anxiolytic dependence, uncomplicated; F15.20 Other stimulant dependence, uncomplicated; F14.20 Cocaine dependence, uncomplicated; F17.210 Nicotine dependence, cigarettes, uncomplicated; F29 Unspecified psychosis not due to a substance or known physiological condition; F12.20 Cannabis dependence, uncomplicated
CPT/HCPCS: 84703

== ENCOUNTER 2016-11-29 10:00 | Inpatient (IN) | payer MEDICARE, OTHER ==
--- NOTE | ~2016-11-29 | DS ---
Unit #: [id number] #: [id number] Patient: TANI DAVIS [id number] [facility] [address] [place] [address] [id number] MR#: [id number] NAME: TANI DAVIS. ROOM: [facility] Age: 31 Sex: F Admission Date: 11/29/2016 : 1985 Discharge Date: 12/01/2016 Attending Physician: Greyson Allison M.D. Primary Care Physician: Primary Care Physician No DISCHARGE SUMMARY REASON FOR ADMISSION Psychosis and substance abuse. DIAGNOSTIC STUDIES LABORATORY RESULTS: Urine drug screen positive for benzodiazepine, amphetamine, and marijuana. HOSPITAL COURSE The patient was admitted to inpatient unit on 11/29/2016 and discharged on 12/01/2016. The patient was treated on the inpatient unit with group therapy, individual therapy, medication management. The patient responded well with the above modalities of treatment. The patient was subsequently discharged with a plan to follow up in outpatient program. DISCHARGE MEDICATIONS Desyrel 100 mg at bedtime for sleep, Neurontin 300 mg t.i.d. for pain, Latuda 80 mg in the morning for mood stabilization, and Vistaril 50 mg q.6 hours p.r.n. for anxiety. DISCHARGE DIAGNOSES Psychiatric: Schizophrenia, chronic, paranoid type, F20.0; amphetamine use disorder, moderate to severe, F15.20; cannabis abuse, moderate, F12.20. Secondary diagnosis: Deferred. Medical diagnosis: Obesity. Stressors: Psychosocial stressors. DISCHARGE INSTRUCTIONS The patient to follow up in outpatient clinic as per social science instructor. CONDITION ON DISCHARGE The patient was pleasant and cooperative. Denied any psychotic symptom or any suicidal ideation. PROGNOSIS Guarded. DIET AND ACTIVITY As tolerated. Unit #: [id number] #: [id number] Patient: TANI DAVIS Dictated by... Otto AnnaC/khai TD: 12/01/2016 16:30 JOB #: [id number] DISCHARGE SUMMARY Page 1 of 1 X Greyson Allison MD X DISCHARGE SUMMARY
--- NOTE | ~2016-11-29 | PA ---
Unit #: [id number] #: [id number] Patient: TANI DAVIS [id number] [facility] [address] [place] [address] [id number] MR#: [id number] NAME: TANI DAVIS. ROOM: [facility] Age: 31 Sex: F Admission Date: 11/29/2016 : 1985 Date of Assessment: 11/29/2016 Attending Physician: Greyson Allison M.D. Admitting Physician: Greyson Allison M.D. Primary Care Physician: Primary Care Physician No PSYCHIATRIC ASSESSMENT INFORMANTS The patient reliability, fair informant and chart reliability, good. CHIEF COMPLAINT AND HISTORY OF PRESENT ILLNESS Relapsed on methamphetamine, reported seeing things, and reported feeling sad and depressed. The patient was paranoid and agitated. The patient reported using methamphetamine on a daily basis. The patient reported that she has schizophrenia and on disability. The patient reported having command hallucination telling her to kill herself. The patient reported that she has been having thoughts of hanging herself, overdosing on her heroin, cutting her throat, wrist bleed out, disorganized thought process and behavior. Needing inpatient admission at this time for psychiatric stabilization. PAST PSYCHIATRIC HISTORY Remarkable for history of previous treatment at [facility] and treatment in [facility] level of care. FAMILY HISTORY AND SOCIAL HISTORY Poor support system. No history of abuse. No legal charges. MEDICAL HISTORY Remarkable for obesity. No chronic medical condition. Musculoskeletal; muscle strength and tone, no atrophy or abnormal movement. Gait normal. MEDICATION HISTORY The patient is on Latuda and Vistaril. ALLERGIES No known drug allergies. SUBSTANCE ABUSE HISTORY History of amphetamine abuse. REVIEW OF SYSTEMS HEENT: Eyes, clear. Ears, nose, mouth, and throat; clear. CARDIOVASCULAR: Unremarkable. RESPIRATORY: Unremarkable. GI: Unremarkable. : Unremarkable. SKIN: Unremarkable. LYMPH NODE: Unremarkable. NEUROLOGIC: Unremarkable. Unit #: [id number] #: [id number] Patient: TANI DAVIS ENDOCRINE: Unremarkable. HEMATOLOGIC: Unremarkable. ALLERGIC/IMMUNOLOGIC: Unremarkable. MUSCULOSKELETAL: Muscle strength and tone, no atrophy or abnormal movement. Gait normal. MENTAL STATUS EXAMINATION VITAL SIGNS: Temperature 97.2, heart rate 74, respiratory rate 18, oxygen saturation 100%, and blood pressure 131/97. Height 5 feet 8 inches and weight 180 pounds. GENERAL APPEARANCE: The patient dressed casually. Did not show any facial deformity. MUSCULOSKELETAL: Please see above. PSYCHIATRIC EXAMINATION Description of speech, rapid. Description of thought process, circumstantial. Description of association, guarded and paranoid. Description of abnormal psychotic thinking; the patient having mood lability and disorganized behavior. Thought process, paranoia and command hallucination. Recent and remote memory, poor. Insight and judgment, poor. Complete mental status examination; oriented in time, place, and person. Recent and remote memory, poor. Attention span and concentration, fair. Language, intact. Fund of knowledge, poor. Vocabulary, poor. Mood and affect, sad and depressed. Insight and judgment, fair to poor. ASSETS AND LIABILITIES Assets, the patient is articulate and able to take care of her ADL. Liability; history of depression, substance abuse, schizophrenia, and psychosis. ADMITTING DIAGNOSES Psychiatric: Schizophrenia, chronic paranoid type, F20.0 and amphetamine use disorder, moderate to severe, F15.20. Secondary diagnosis: Deferred. Medical diagnosis: Obesity. Stressors: Psychosocial stressors. PSYCHIATRIC PLAN AND TREATMENT GOAL AND DISCHARGE PLAN 1. Advised to admit the patient on the inpatient unit. Provide safe, supportive, and structured environment. 2. Ordered labs; CBC, CMP, UA, and UDS. 3. Advised to resume home medication. If needed, consider further adjustment of medication. The patient to attend all the programing on the inpatient unit and the patient was placed on 72-hour hold. TREATMENT GOAL To attain euthymic mood, gain insight into her problem, and learn coping skills. DISCHARGE PLAN Plan to stabilize the patient and consider followup in outpatient program ESTIMATED LENGTH OF STAY Unit #: [id number] #: [id number] Patient: TANI DAVIS 2 weeks. Dictated by... Greyson Allison M.D. RAY/khai TD: 11/30/2016 19:56 JOB #: [id number] PSYCHIATRIC ASSESSMENT Page 1 of 1 X Greyson Allison MD PSYCHIATRIC ASSESSMENT
--- NOTE | ~2016-11-29 | HP ---
Unit #: [id number] #: [id number] Patient: TANI DAVIS [id number] [facility] [address] [place] [address] [id number] I MR#: [id number] NAME: TANI DAVIS ROOM: [facility] Age: 31 Sex: F Admission Date: 11/29/2016 : 1985 Attending Physician: Greyson Allison M.D. Admitting Physician: Greyson Allison M.D. Primary Care Physician: Primary Care Physician No HISTORY AND PHYSICAL The patient is a 31-year-old female admitted to [address] [place] [address] on 11/29/2016 for psychosis. The patient had a recent admission on 11/12/2016 where a full history and physical was completed. That history and physical has been reviewed no changes need to be made. Dictated by... Lisa Childers/natty TD: 11/29/2016 19:20 JOB #: [id number] HISTORY AND PHYSICAL Page 1 of 1 X HARIS BERKOWITZ APRN X HISTORY AND PHYSICAL
--- NOTE | ~2016-11-29 | PN ---
Unit #: [id number] #: [id number] Patient: LENY DIANA [id number] [facility] [address] [place] [address] [id number] I MR#: [id number] NAME: LENY DIANA ROOM: [facility] Age: 31 Sex: F Admission Date: 11/29/2016 : 1985 Attending Physician: Greyson Allison M.D. Admitting Physician: Otto Anna PROGRESS NOTES DATE OF SERVICE: 11/22/2016 DISCUSSION Leny Diana is a 31-year-old white female, seen on 11/22/2016. The patient carries a diagnosis of amphetamine abuse; schizophrenia; and psychosis, not otherwise specified. The patient reports that she is taking her medications regularly and feeling better. The patient was able to maintain safe behavior. Compliant and cooperative. Denied any psychotic symptoms. The patient reported no suicidal or homicidal ideation. Denied any psychotic symptom. Maintaining sobriety. Compliant with medications. REVIEW OF SYSTEMS Complete review of systems unremarkable. MENTAL STATUS EXAMINATION General appearance, the patient dressed casually. Attention span and concentration, fair. Oriented in place and person. Mood and affect, sad and dysphoric. Speech, monotone. Thought process, concrete. The patient denied any thoughts of harming self or others. Denied any psychotic symptom. Recent and remote memory, poor. Insight and judgment, poor. DIAGNOSES Amphetamine use disorder, severe, F15.20 and schizophrenia, chronic paranoid type, F20.0. ASSESSMENT AND PLAN 1. Supportive psychotherapy and psychoeducation provided to the patient. 2. Educated about benefits and side effects of medication and course and prognosis of illness. 3. Advised to continue with current medications; Latuda 80 mg at bedtime, Vistaril 50 mg q.6 hours p.r.n. for severe anxiety, Desyrel 100 mg at bedtime, and Neurontin 300 mg t.i.d. We will continue to monitor. If needed, consider further adjustment of medication. The patient was given crisis line #[phone]. Please feel free to call if any questions, telephone #[phone]. Dictated by... Greyson Allison M.D. [facility] [place] Unit #: [id number] #: [id number] Patient: LENY DIANA TD: 11/28/2016 17:58 JOB #: [id number] [facility] PROGRESS NOTES Page 1 of 1 X Greyson Allison MD PROGRESS NOTE
--- NOTE | ~2016-11-29 | PN ---
Unit #: [id number] #: [id number] Patient: LENY DIANA [id number] [facility] [address] [place] [address] [id number] I MR#: [id number] NAME: LENY DIANA. ROOM: [facility] Age: 31 Sex: F Admission Date: 11/29/2016 : 1985 Attending Physician: Greyson Allison M.D. Admitting Physician: Greyson Allison M.D. Primary Care Physician: Primary Care Physician Melissa CARBALLO NOTES DATE OF SERVICE: 11/30/2016 DISCUSSION Ms. Leny Diana is a 31-year-old female, seen on 11/30/2016. The patient interviewed, chart reviewed, and obtained information from nursing staff. The patient still having confusion, paranoia, mood lability, compliant with medication, attending to internal stimuli. Complete review of systems unremarkable. MENTAL STATUS EXAMINATION General appearance, the patient dressed casually. Attention span and concentration, fair. Oriented in place and person. Mood and affect, labile. Speech, monotone. Thought process, concrete. The patient denied any thoughts of harming self or others, but guarded. Recent and remote memory, poor. Insight and judgment, poor. DIAGNOSES 1. Schizophrenia, chronic, paranoid type. 2. Amphetamine use disorder. ASSESSMENT AND PLAN Advised to continue with current medication and therapeutic protocol. If needed, consider further adjustment of medication. Dictated by... Otto Anna/khai TD: 12/01/2016 21:05 JOB #: [id number] Unit #: [id number] #: [id number] Patient: LENY DIANA [facility] PROGRESS NOTES Page 1 of 1 X Greyson Allison MD PROGRESS NOTE
== END 2016-12-01 15:05 | disposition home or self-care (01) | DRG 885 ==
LOC: P2L 11:19
DX: F20.0 Paranoid schizophrenia (principal); F15.20 Other stimulant dependence, uncomplicated
CPT/HCPCS: J0515; J1630; J2060

== ENCOUNTER 2016-12-02 09:33 | Emergency (ER) | payer MEDICARE, OTHER | END 2016-12-02 12:00 | disposition left against medical advice (07) | LOC: CED 09:33 | DX: F12.10 Cannabis abuse, uncomplicated (principal); F17.200 Nicotine dependence, unspecified, uncomplicated | CPT/HCPCS: 80307; 99282 ==

== ENCOUNTER 2016-12-17 17:00 | Inpatient (IN) | payer MEDICARE, OTHER ==
--- NOTE | ~2016-12-17 | HP ---
Unit #: [id number] #: [id number] Patient: LENY DAVIS [id number] [place] [address] [id number] I MR#: [id number] NAME: LENY DAVIS. ROOM: 30 Age: 31 Sex: F Admission Date: 12/17/2016 : 1985 Attending Physician: Greyson Allison M.D. Admitting Physician: Greyson Allison M.D. Primary Care Physician: Greyson Allison M.D. HISTORY AND PHYSICAL HISTORY OF PRESENT ILLNESS Leny is a 31-year-old female admitted on 12/17/[address] [place] [address] for visual hallucinations as well as suicidal ideation and meth use. PAST MEDICAL HISTORY Obesity. PAST SURGICAL HISTORY None. ALLERGIES No known drug allergies. SOCIAL HISTORY Smokes 1/2 pack of cigarettes daily. Occasional alcohol use and frequent methamphetamine use. She is currently single and living alone. FAMILY HISTORY Noncontributory. REVIEW OF SYSTEMS CONSTITUTIONAL: No fever or chills. HEENT: Denies any sore throat, ear pain or runny nose. CARDIOVASCULAR: Denies chest pain, irregular heart rhythm or palpitations. CHEST: Denies shortness of breath or cough. No hemoptysis. GASTROINTESTINAL: Denies nausea, vomiting, diarrhea or chronic constipation. ENDOCRINE: Denies history of increased thirst or urination. No recent significant weight loss or gain. GENITOURINARY: Denies dysuria, frequency, or hematuria. SKIN: Denies any rashes. HEMATOLOGIC: Denies history of increased bleeding or bruising. MUSCULOSKELETAL: Denies any hot, swollen joints. No generalized muscle pain. NEUROLOGIC: Denies problems with vision or speech. No frequent, severe headaches. No numbness, tingling or weakness in any extremities. Denies loss of bladder or bowel control. CURRENT MEDICATIONS 1. Trazodone. 2. Latuda. 3. Vistaril. Unit #: [id number] #: [id number] Patient: LENY DVAIS PHYSICAL EXAMINATION GENERAL: Alert, oriented, in no acute distress. VITAL SIGNS: Blood pressure 122/74, heart rate 76, temperature 97.6. HEIGHT: 5 feet 8. SKIN: Warm and dry without rash or lesion. HEENT: Normocephalic. TMs not viewed. Oral and nasal passages clear. Conjunctivae clear. PERRLA. EOMs intact. NECK: Supple without lymphadenopathy or thyromegaly. HEART: Regular rate and rhythm without murmur. LUNGS: Clear. ABDOMEN: Soft, nontender, without masses or hepatosplenomegaly. : Not done. EXTREMITIES: No evidence of cyanosis, clubbing or edema. Moves all without focal deficit. NEUROLOGICAL: Grossly within normal limits. Cranial Nerves: II: Visual torres are intact. III, IV AND : Extraocular movements are intact. Pupils are equal, round and reactive to light. V: Facial sensation is grossly normal. VII: Facial movements and expression are normal. VIII: Auditory acuity grossly intact. IX, X: Uvula is midline. Phonation is normal. XI: Patient shrugs shoulders and turns head normally. XII: Tongue protrudes in the midline. Sensory and Motor Function: Sensory and motor sensation is grossly normal. Motor: moves all extremities well. Coordination: Gait is normal. Deep Tendon Reflexes: Intact. IMPRESSION Psychiatric admission. RECOMMENDATIONS PSYCHIATRIC: Per psychiatrist. MEDICAL: No contraindications to participate in facility's activities. MEDICAL PROGNOSIS Good. MEDICAL CONDITION Stable. Dictated by... Lisa Pope/anirudh TD: 12/18/2016 19:27 JOB #: [id number] Unit #: [id number] #: [id number] Patient: LENY DAVIS HISTORY AND PHYSICAL Page 1 of 1 X BORA PALMA APRN HISTORY AND PHYSICAL
--- NOTE | ~2016-12-17 | PN ---
Unit #: [id number] #: [id number] Patient: LENY DIANA [id number] [facility] [address] [place] [address] [id number] I MR#: [id number] NAME: LENY DIANA. ROOM: P130 Age: 31 Sex: F Admission Date: 12/17/2016 : 1985 Attending Physician: Greyson Allison M.D. Admitting Physician: Greyson Allison M.D. Primary Care Physician: Otto Anna PROGRESS NOTES DATE OF SERVICE: 12/19/2016 DISCUSSION Ms. Leny Diana is a 31-year-old female, seen on 12/19/2016. The patient interviewed, chart reviewed, and obtained information from nursing staff. The patient continues to be sad, dysphoric, flat affect, withdrawn, isolative, and guarded, but denied any thoughts of harming self or others. Compliant with medication. REVIEW OF SYSTEMS Complete review of systems unremarkable. MENTAL STATUS EXAMINATION General appearance, the patient dressed casually. Attention span and concentration, fair. Oriented in time, place, and person. Mood and affect, labile. Speech, monotone. Thought process, concrete. The patient denied any thoughts of harming self or others, but somewhat guarded. Recent and remote memory, poor. Insight and judgment, poor. DIAGNOSES Psychosis, not otherwise specified; schizophrenia, chronic paranoid type; and amphetamine use disorder, moderate. ASSESSMENT AND PLAN Advised to continue with current medication and therapeutic protocol. If needed, consider further adjustment of medication. Dictated by... Otto Anna/khai TD: 12/19/2016 14:01 JOB #: [id number] Unit #: [id number] #: [id number] Patient: LENY DIANA PROGRESS NOTES Page 1 of 1 X Greyson Allison MD PROGRESS NOTE
--- NOTE | ~2016-12-17 | PA ---
Unit #: [id number] #: [id number] Patient: [facility]IANA [id number] [facility] [address] [place] [address] [id number] I MR#: [id number] NAME: LENY DIANA ROOM: 30 Age: 31 Sex: F Admission Date: 12/17/2016 : 1985 Date of Assessment: 12/17/2016 Attending Physician: Greyson Allison M.D. Admitting Physician: Greyson Allison M.D. Primary Care Physician: Greyson Allison M.D. PSYCHIATRIC ASSESSMENT INFORMANTS The patient reliability, fair informant and chart reliability, good. CHIEF COMPLAINT Feeling sad, depressed, and paranoid. HISTORY OF PRESENT ILLNESS Ms. Leny Diana is a 31-year-old female, presented with the above-mentioned complaint. The patient presented due to substance abuse and mental health and reported experiencing symptoms of psychosis and having delusions related to musician. The patient reported having hallucinations related to devil. The patient reported no substance abuse in the last 11 days, but history of methamphetamine abuse. The patient having passive SI. Denied any homicidal ideation. Needing inpatient admission at this time for psychiatric stabilization. The patient reported that she has history of tobacco use, age of onset 12; alcohol, age of onset 13; marijuana, age of onset 13; opioid, age of onset 25; amphetamine, age of onset 27; benzodiazepine abuse, age of onset 27; and synthetic drugs, 25. The patient reported longest period of sobriety 60 days, last period of sobriety in 2012. The patient currently reporting disorganized thought process, guarded, paranoid, sad, depressed, and anxious. PAST PSYCHIATRIC HISTORY Remarkable for [facility] of [facility] Last admission in 11/2016 at [facility] in [facility] program. FAMILY HISTORY AND SOCIAL HISTORY The patient has poor support system. No history of abuse. No legal charges. MEDICAL HISTORY Remarkable for obesity. Musculoskeletal; muscle strength and tone, no atrophy or abnormal movement. Gait normal. MEDICATION HISTORY The patient is on Latuda and Vistaril. ALLERGIES No known drug allergies. SUBSTANCE ABUSE HISTORY History of amphetamine abuse. Please see above for detail. Unit #: [id number] #: [id number] Patient: LENY DIAAN REVIEW OF SYSTEMS HEENT: Eyes, clear. Ears, nose, mouth, and throat; clear. CARDIOVASCULAR: Unremarkable. RESPIRATORY: Unremarkable. GI: Unremarkable. : Unremarkable. SKIN: Unremarkable. LYMPH NODE: Unremarkable. NEUROLOGIC: Unremarkable. ENDOCRINE: Unremarkable. HEMATOLOGIC: Unremarkable. ALLERGIC/IMMUNOLOGIC: Unremarkable. MUSCULOSKELETAL: Muscle strength and tone, no atrophy or abnormal movement. Gait normal. MENTAL STATUS EXAMINATION CONSTITUTIONAL: Measurement of vital signs; temperature 97.8, heart rate 81, respiratory rate 20, oxygen saturation 95%, and blood pressure 103/64. Height 5 feet 8 inches and weight 180 pounds. GENERAL APPEARANCE: The patient dressed casually. No facial deformity noted. MUSCULOSKELETAL: Please see above. PSYCHIATRIC EXAMINATION Description of speech, regular rate. Description of thought process, goal directed. Description of association; guarded, paranoid, attending to internal stimuli, delusional, paranoia, and passive SI. Denied any homicidal ideation. Description of the patient's judgment: Concerning everyday activity, poor. Social situation, poor. Concerning psychiatric condition, poor. Complete mental status examination; oriented in time, place, and person. Recent and remote memory, fair. Attention span and concentration, fair. Language, able to name object and repeat phrases. Fund of knowledge, aware of current event and passive vocabulary intact. Mood and affect, sad and dysphoric. Insight and judgment, fair to poor. ASSETS AND LIABILITIES Assets, the patient is articulate and able to take care of her ADL. Liability; history of substance abuse, depression, and psychosis. ADMITTING DIAGNOSES Psychiatric: Psychosis, not otherwise specified, F29.0; schizophrenia, chronic paranoid type, F20.0; and amphetamine use disorder, severe, F15.20. Secondary diagnosis: Deferred. Medical diagnosis: None. Stressors: Psychosocial stressors. PSYCHIATRIC PLAN AND TREATMENT GOAL AND DISCHARGE PLAN 1. Advised to admit the patient on the inpatient unit. Provide safe, supportive, and structured environment. 2. Ordered labs; CBC, CMP, UA, and UDS. 3. Precaution for psychosis and aggression. 4. The patient to resume home medication. Detox protocol and detox Unit #: [id number] #: [id number] Patient: LENY DIANA monitoring. 5. The patient to attend all the programing on the inpatient unit including group therapy and chemical dependency group. TREATMENT GOAL To attain euthymic mood, gain insight into her problem, and learn coping skills. DISCHARGE PLAN Plan to stabilize the patient and consider followup in outpatient program. ESTIMATED LENGTH OF STAY 7 to 10 days. Dictated by... Otto Anna/khai TD: 12/18/2016 13:31 JOB #: [id number] PSYCHIATRIC ASSESSMENT Page 1 of 1 X Greyson Allison MD X PSYCHIATRIC ASSESSMENT
--- NOTE | ~2016-12-17 | PN ---
Unit #: [id number] #: [id number] Patient: TANI DAVIS [id number] [facility] [address] [place] [address] [id number] I MR#: [id number] NAME: TANI DAVIS. ROOM: P130 Age: 31 Sex: F Admission Date: 12/17/2016 : 1985 Attending Physician: Greyson Allison M.D. Admitting Physician: Greyson Allison M.D. Primary Care Physician: Otto Anna PROGRESS NOTES DATE OF SERVICE: 12/18/2016 DISCUSSION Ms. Michele is a 31-year-old female, seen on 12/18/2016. The patient interviewed, chart reviewed, and obtained information from nursing staff. The patient compliant and cooperative. Mood is sad and dysphoric. Flat affect, guarded, withdrawn, and isolative. The patient's last urine drug screen was positive for benzodiazepine, cocaine, and amphetamine. Current report is pending. REVIEW OF SYSTEMS Complete review of systems unremarkable. MENTAL STATUS EXAMINATION General appearance, the patient dressed casually. Attention span and concentration, poor. Oriented in place and person. Mood and affect, labile. Speech, monotone. Thought process, concrete. The patient reported paranoia, delusions, and passive SI. Recent and remote memory, poor. Insight and judgment, poor. DIAGNOSES Psychosis, not otherwise specified; schizophrenia, chronic paranoid type; and polysubstance abuse. ASSESSMENT AND PLAN Advised to continue with current medication and therapeutic protocol. If needed, consider further adjustment of medication. The patient is currently on combination of Neurontin, Latuda, Vistaril, and Desyrel combination. Dictated by... Greyson Allison M.D. SZKareem/debbil TD: 12/18/2016 15:07 JOB #: [id number] Unit #: [id number] #: [id number] Patient: TANI DAVIS PROGRESS NOTES Page 1 of 1 X Greyson Allison MD PROGRESS NOTE
--- NOTE | ~2016-12-17 | DS ---
Unit #: [id number] #: [id number] Patient: TANI DAVIS [id number] [facility] [address] [place] [address] [id number] MR#: [id number] NAME: TANI DAVIS. ROOM: 30 Age: 31 Sex: F Admission Date: 12/17/2016 : 1985 Discharge Date: 12/20/2016 Attending Physician: Greyson Allison M.D. Primary Care Physician: Greyson Allison M.D. DISCHARGE SUMMARY REASON FOR ADMISSION Psychosis and substance abuse. DIAGNOSTIC STUDIES LABORATORY RESULTS: Remarkable for urine drug screen positive for benzodiazepine, cocaine, and amphetamine. HOSPITAL COURSE The patient was admitted to inpatient unit on 12/17/2016 and discharged on 12/20/2016. The patient was treated with chemical dependency group, medication management, psychotherapy, psychoeducation, and expressive therapy. The patient was responsive to treatment. Subsequently, the patient was discharged with a plan to follow up in outpatient program. DISCHARGE MEDICATIONS Trazodone 100 mg at bedtime for sleep, Latuda 80 mg daily for mood stabilization, Neurontin 300 mg t.i.d. for anxiety. DISCHARGE DIAGNOSES Psychiatric: Schizophrenia, chronic, paranoid type, F20.0; amphetamine use disorder, moderate, F15.20; cannabis abuse, moderate, F12.20. Secondary diagnosis: Deferred. Medical diagnosis: Obesity. Stressors: Psychosocial stressor. DISCHARGE INSTRUCTIONS The patient to follow up in outpatient clinic as per health social work professor. CONDITION ON DISCHARGE The patient was pleasant and cooperative. Denied any psychotic symptom or any suicidal ideation. PROGNOSIS Guarded. DIET AND ACTIVITY As tolerated. Dictated by... Unit #: [id number] #: [id number] Patient: TANI DAVIS Otto AnnaC/khai TD: 12/21/2016 17:07 JOB #: [id number] DISCHARGE SUMMARY Page 1 of 1 X Greyson Allison MD X DISCHARGE SUMMARY
[2016-12-18 11:40] LABS: BASOPHIL% 0.5 % (0-2.5); EOSINOPHIL# 0.6 X10e3 (0-0.7); EOSINOPHIL% 8.7 % (0.0-7.0); HEMOGLOBIN 13.8 gm/dL (12.0-16.0); LYMPHOCYTE# 2.9 X10e3 (1.0-3.5); LYMPHOCYTE% 41.9 % (17.0-45.0); MEAN CELL VOLUME 89.2 FL (83-96); MEAN CORPUSCULAR HEMOGLOBIN 29.2 PG (28-34); MEAN CORPUSCULAR HGB CONC 32.8 g/dL (30-36); MEAN PLATELET VOLUME 7.5 FL (6.5-11.5); MONOCYTE# 0.5 X10e3 (0-1.0); MONOCYTE% 7.6 % (3.0-12.0); NEUTROPHIL# 2.9 X10e3 (1.5-7.1); NEUTROPHIL% 41.3 % (40-75); PLATELET COUNT 410 X10e3 (140-420); RED BLOOD COUNT 4.71 X10e (3.90-5.30); RED CELL DISTRIBUTION WIDTH 13.2 % (11.0-15.5); WHITE BLOOD COUNT 6.9 X10e3 (4.0-10.5)
[2016-12-18 11:44] LABS: DIFF IND NO
[2016-12-18 12:15] LABS: ALBUMIN SERUM 3.4 g/dL (3.5-5.0); BILIRUBIN,TOTAL 0.4 mg/dL (0.2-2.0); BUN/CREATININE RATIO 11.66; CALCIUM SERUM 9.2 mg/dL (8.4-10.2); CREATININE SERUM 0.6 mg/dL (0.6-1.4); GLOM FILT RATE Estimated 121.5 mL/min (>60); POTASSIUM 3.6 mmol/L (3.5-5.1); PROTEIN TOTAL SERUM 6.5 g/dL (6.0-8.3)
== END 2016-12-20 16:06 | disposition home or self-care (01) | DRG 885 ==
LOC: P1S 19:03
PROVIDERS: Psychiatry & Neurology Psychiatry
DX: F29 Unspecified psychosis not due to a substance or known physiological condition (principal); F15.20 Other stimulant dependence, uncomplicated; R45.851 Suicidal ideations; F20.0 Paranoid schizophrenia; F17.210 Nicotine dependence, cigarettes, uncomplicated
CPT/HCPCS: 80053; 85025

== ENCOUNTER 2017-01-03 14:43 | Emergency (ER) | payer MEDICARE, OTHER | END 2017-01-03 15:48 | disposition home or self-care (01) | LOC: CED 14:43 → CFTX 14:43 → CED 15:31 → CFTX 15:31 | DX: L03.115 Cellulitis of right lower limb (principal); F20.9 Schizophrenia, unspecified; F17.210 Nicotine dependence, cigarettes, uncomplicated | CPT/HCPCS: 87070; 87077; 87186; 87205; 99283 ==

== ENCOUNTER 2017-01-28 11:37 | Inpatient (IN) | payer MEDICARE, OTHER ==
[~2017-01-28] VITALS: Ht 172.7 cm; Wt 81.6 kg
--- NOTE | ~2017-01-28 | PN ---
Unit #: [id number] #: [id number] Patient: LENY DIANA [id number] [facility] [address] [place] [address] [id number] I MR#: [id number] NAME: LENY DIANA. ROOM: P203 Age: 31 Sex: F Admission Date: 01/28/2017 : 1985 Attending Physician: Greyson Allison M.D. Admitting Physician: Greyson Allison M.D. Primary Care Physician: Primary Care Physician Melissa VALENCIA PROGRESS NOTES DATE OF SERVICE 01/30/2017 DISCUSSION Leny Diana is a 31-year-old female seen on 01/30/2017. Patient interviewed, chart reviewed. Obtained information from nursing staff. Patient was guarded, paranoid, flat affect, withdrawn, isolative, guarded. The patient's vital signs stable, 98.2, 79, 96/57. The patient was cooperative. Complete review of systems unremarkable. MENTAL STATUS EXAMINATION General appearance, patient dressed casually. Attention span and concentration poor. Oriented to place and person. Mood and affect labile. Speech rapid. Thought process circumstantial, guarded, paranoid but denied any thoughts of harming self or others. Recent and remote memory poor. Insight and judgement poor. The patient is currently on 72 hour hold. DIAGNOSES 1. Psychosis NOS. 2. Amphetamine use disorder moderate. ASSESSMENT/PLAN Advise to continue with current medication and therapeutic protocol. Patient urine drug screen was positive for amphetamine and marijuana. Dictated by... Otto Anna/natty TD: 02/01/2017 04:02 JOB #: [id number] Unit #: [id number] #: [id number] Patient: LENY DIANA PROGRESS NOTES Page 1 of 1 X Greyson Allison MD PROGRESS NOTE
--- NOTE | ~2017-01-28 | DS ---
Unit #: [id number] #: [id number] Patient: TANI DAVIS [id number] [facility] [address] [place] [address] [id number] I MR#: [id number] NAME: TANI DAVIS. ROOM: P203 Age: 31 Sex: F Admission Date: 01/28/2017 : 1985 Discharge Date: 01/31/2017 Attending Physician: Greyson Allison M.D. DISCHARGE SUMMARY REASON FOR ADMISSION Psychosis. DIAGNOSTIC STUDIES LABORATORY RESULTS: Urine drug screen positive for amphetamine and marijuana. HOSPITAL COURSE The patient was admitted to inpatient unit on 01/28/2017 and discharged on 01/31/2017. The patient was treated on the inpatient unit with group therapy, individual therapy, medication management. The patient was responsive to treatment, showed improvement. Subsequently, the patient was discharged with a plan to follow up in outpatient program. DISCHARGE MEDICATIONS Desyrel 100 mg at bedtime for sleep, Neurontin 600 mg b.i.d. for severe anxiety and mood stabilization, Vistaril 50 mg t.i.d. for anxiety, Depakote ER 500 mg b.i.d. for mood stabilization, Latuda 120 mg daily for psychosis. DISCHARGE DIAGNOSES Psychiatric: Schizophrenia, chronic paranoid type, F20.0; rule out schizoaffective disorder, bipolar type; amphetamine use disorder, severe, F15.20; cannabis abuse, moderate, F12.20. Secondary diagnosis: Deferred. Medical diagnosis: Obesity. Stressors: Psychosocial stressors. DISCHARGE INSTRUCTIONS The patient to follow up in outpatient clinic as per social worker clinical. CONDITION ON DISCHARGE The patient was pleasant and cooperative. Denied any psychotic symptom or any suicidal ideation. PROGNOSIS Guarded. DIET AND ACTIVITY As tolerated. Unit #: [id number] #: [id number] Patient: TANI DAVIS Dictated by... Greyson Allison M.D. SZC/khai TD: 02/02/2017 04:06 JOB #: [id number] DISCHARGE SUMMARY Page 1 of 1 X Greyson Allison MD X DISCHARGE SUMMARY
--- NOTE | ~2017-01-28 | PA ---
Unit #: [id number] #: [id number] Patient: LENY DIANA [id number] [facility] [address] [place] [address] [id number] I MR#: [id number] NAME: LENY DIANA. ROOM: P203 Age: 31 Sex: F Admission Date: 01/28/2017 : 1985 Date of Assessment: Attending Physician: Greyson Allison M.D. Admitting Physician: Greyson Allison M.D. PSYCHIATRIC ASSESSMENT INFORMANTS The patient reliability, fair; chart reliability, good. CHIEF COMPLAINT Psychosis, some delusions. HISTORY OF PRESENT ILLNESS Ms. Leny Diana is a 31-year-old female, stepped up from [facility] level of care. The patient was presenting with increasing psychosis, fixated on delusions of M and M. the patient reports that the devil and Bin are fighting in her head. The patient reports pressured speech, disorganized thought process, difficulty in taking care of herself. The patient lives by herself. Also history of amphetamine abuse, but denied any use recently. The patient denied any suicidal or homicidal ideation, but extremely paranoid and delusional. The patient reported meth use 2 days ago. The patient having difficulty staying in group, pacing in hallway, talking to herself, attending to internal stimuli. Needing inpatient admission at this time for psychiatric stabilization. PAST PSYCHIATRIC HISTORY Remarkable for history of previous admission at [facility] in 12/2016. [facility] treatment at [facility]. FAMILY HISTORY AND SOCIAL HISTORY The patient lives by herself and poor support system. No legal charges. No history of abuse. MEDICAL HISTORY Remarkable for obesity. Musculoskeletal; muscle strength and tone, no atrophy or abnormal movement. Gait normal. MEDICATIONS HISTORY The patient is on Latuda and Vistaril combination. ALLERGIES No known drug allergies. SUBSTANCE ABUSE HISTORY The patient reported history of amphetamine abuse, last use 2 days ago. The patient is also on Desyrel, Vistaril, Neurontin. REVIEW OF SYSTEMS HEENT: Eyes, clear. Ears, nose, mouth, and throat; clear. Unit #: [id number] #: [id number] Patient: LENY DIANA CARDIOVASCULAR: Unremarkable. RESPIRATORY: Unremarkable. GI: Unremarkable. : Unremarkable. SKIN: Unremarkable. LYMPH NODE: Unremarkable. NEUROLOGIC: Unremarkable. ENDOCRINE: Unremarkable. HEMATOLOGIC: Unremarkable. ALLERGIC/IMMUNOLOGIC: Unremarkable. MUSCULOSKELETAL: Muscle strength and tone, no atrophy or abnormal movement. Gait normal. MENTAL STATUS EXAMINATION CONSTITUTIONAL: Measurement of vital signs; temperature of 99.0, pulse 88, respirations 16, 97% oxygen saturations, blood pressure 101/65, height 5 feet 8 inches, weight 180 pounds. General appearance; the patient dressed casually. The patient did not show any facial deformity. Musculoskeletal; please see above. PSYCHIATRIC EXAMINATION Description of speech, rambling. Description of thought process, circumstantial. Description of association; guarded, paranoid, delusional, mood lability, agitation, but denied any suicidal or homicidal ideation. Description of the patient's judgment, concerning everyday activity, poor. Social situation, poor. Concerning psychiatric condition, poor. Complete mental status examination; orientation in time, place, and person. Recent and remote memory, poor. Attention span and concentration, poor. Language; able to name object and repeat phrases. Fund of knowledge is fair. Vocabulary fair. Mood and affect, labile. Insight and judgment, poor. ASSETS AND LIABILITIES Assets; the patient articulate, able to take care of her ADL. Liability, history of substance abuse, depression. ADMITTING DIAGNOSES Psychiatric: Schizophrenia, chronic paranoid type, F20.0; rule out schizoaffective disorder, bipolar type; amphetamine use disorder, severe, F15.20. Secondary diagnosis: Deferred. Medical diagnosis: Obesity. Stressors: Psychosocial stressor. PSYCHIATRIC PLAN AND TREATMENT GOAL AND DISCHARGE PLAN 1. Advised to admit the patient on the inpatient unit. Provide safe, supportive, and structured environment. 2. Ordered labs, UA, UDS. 3. Precaution for aggression, psychosis, self-harm. 4. Advised to resume home medication. If needed, consider further adjustment of medication. The patient to attend all the programing on the inpatient unit including group therapy, individual therapy, chemical dependency group. Treatment goal to attain euthymic mood, gain insight Unit #: [id number] #: [id number] Patient: LENY DIANA into her problem, and learn coping skills. 5. Discharge plan, plan to stabilize the patient and consider followup in outpatient program. ESTIMATED LENGTH OF STAY 5 days. Dictated by... Otto Anna/khai TD: 01/29/2017 14:49 JOB #: [id number] PSYCHIATRIC ASSESSMENT Page 1 of 1 X Greyson Allison MD PSYCHIATRIC ASSESSMENT
--- NOTE | ~2017-01-28 | PN ---
Unit #: [id number] #: [id number] Patient: LENY DIANA [id number] [facility] [address] [place] [address] [id number] MR#: [id number] NAME: LENY DIANA. ROOM: P203 Age: 31 Sex: F Admission Date: 01/28/2017 : 1985 Attending Physician: Greyson Allison M.D. Admitting Physician: Greyson Allison M.D. Primary Care Physician: Primary Care Physician Melissa VALENCIA PROGRESS NOTES DATE 01/28/2017 DISCUSSION Ms. Leny Diana is a 31-year-old white female, seen on 01/28/2017. The patient diagnosed with schizophrenia, bipolar mood disorder, amphetamine abuse. The patient apparently used amphetamine recently. The patient sad, depressed, anxious, mood was labile. The patient having racing thoughts, paranoia, delusional, crying spell, difficulty in staying in group. The patient's urine drug screen was positive for amphetamine and marijuana. REVIEW OF SYSTEMS Complete review of systems unremarkable. MENTAL STATUS EXAMINATION General appearance: Patient dressed casually and moderately obese, tearful , anxious, nervous, restless and pacing. Attention span and concentration, poor. Speech, rapid in rate. Oriented in time, place, and person. Mood and affect labile. Thought process, circumstantial. Thought content, guarded, paranoid, delusional. Flight of ideas. Passive SI. Denied any homicidal ideation. Recent and remote memory, poor. Insight and judgment, impaired. Fund of knowledge, fair. DIAGNOSES 1. Schizophrenia, chronic, paranoid type, F20.0. 2. Rule out schizoaffective disorder, bipolar type. 3. Cannabis abuse, moderate, F4.20. 4. Amphetamine use disorder, severe, F15.20. ASSESSMENT/PLAN 1. Supportive psychotherapy, psychoeducation provided to the patient. 2. Advise at this time to transfer the patient from [facility] level of care to inpatient. [facility]. Dictated by... Otto Anna/villegas Unit #: [id number] #: [id number] Patient: LENY DIANA TD: 01/31/2017 05:31 JOB #: [id number] [facility] PROGRESS NOTES Page 1 of 1 X Greyson Allison MD PROGRESS NOTE
--- NOTE | ~2017-01-28 | PN ---
Unit #: [id number] #: [id number] Patient: LENY DIANA [id number] [facility] [address] [place] [address] [id number] I MR#: [id number] NAME: LENY DIANA. ROOM: P203 Age: 31 Sex: F Admission Date: 01/28/2017 : 1985 Attending Physician: Greyson Allison M.D. Admitting Physician: Greyson Allison M.D. Primary Care Physician: Primary Care Physician No [facility] PROGRESS NOTES DATE 01/27/2017 DISCUSSION Ms. Leny Diana is a 31-year-old white female, seen on 01/27/2017. The patient dressed casually. Mood was labile, delusional, paranoid, mood lability, extremely anxious, reported recent use of methamphetamine. The patient compliant with medication. REVIEW OF SYSTEMS Complete review of systems unremarkable. MENTAL STATUS EXAMINATION General appearance: Patient dressed casually. Attention span and concentration, poor. Speech, rapid in rate. Oriented in time, place, and person. Mood and affect, labile. Thought process, circumstantial. Thought content guarded, paranoid, delusional, mood lability but denied any thoughts of harming self or others. Recent and remote memory, poor. Insight and judgment, poor. DIAGNOSES 1. Schizophrenia, chronic paranoid type, F20.0. 2. Amphetamine use disorder, severe, F15.20. 3. Marijuana abuse, moderate, F12.20. ASSESSMENT/PLAN 1. Supportive psychotherapy, psychoeducation provided to the patient. 2. Educated about benefits and side effects of medication, and course and prognosis of illness. 3. The patient was advised to maintain sobriety, monitor closely, if needed consider inpatient hospitalization. 4. The patient was also given crisis line number, [phone]. Dictated by... Greyson Allison M.D. RAY/bakari TD: 01/31/2017 06:48 Unit #: [id number] #: [id number] Patient: LENY DIANA JOB #: [id number] [facility] PROGRESS NOTES Page 1 of 1 X Greyson Allison MD PROGRESS NOTE
--- NOTE | ~2017-01-28 | HP ---
Unit #: [id number] #: [id number] Patient: TANI DAVIS [id number] [place] [address] [id number] MR#: [id number] NAME: TANI DAVIS. ROOM: P202 Age: 31 Sex: F Admission Date: 01/28/2017 : 1985 Attending Physician: Greyson Allison M.D. Admitting Physician: Greyson Allison M.D. Primary Care Physician: Primary Care Physician No HISTORY AND PHYSICAL HISTORY OF PRESENT ILLNESS The patient is a 31-year-old female admitted to [address] [place] [address] on 01/28/2017 for paranoia and methamphetamine abuse. PAST MEDICAL HISTORY Obesity. PAST SURGICAL HISTORY The patient denies. SOCIAL HISTORY She smokes half pack of cigarettes daily. Uses alcohol occasionally and regular methamphetamine use. FAMILY MEDICAL HISTORY Noncontributory. ALLERGIES No known drug allergies. CURRENT MEDICATIONS 1. Latuda. 2. Trazodone. 3. Neurontin. 4. Vistaril. 5. Depakote. REVIEW OF SYSTEMS CONSTITUTIONAL: No fever or chills. HEENT: Denies any sore throat, ear pain or runny nose. CARDIOVASCULAR: Denies chest pain, irregular heart rhythm or palpitations. CHEST: Denies shortness of breath or cough. No hemoptysis. GASTROINTESTINAL: Denies nausea, vomiting, diarrhea or chronic constipation. ENDOCRINE: Denies history of increased thirst or urination. No recent significant weight loss or gain. GENITOURINARY: Denies dysuria, frequency, or hematuria. SKIN: Denies any rashes. HEMATOLOGIC: Denies history of increased bleeding or bruising. MUSCULOSKELETAL: Denies any hot, swollen joints. No generalized muscle pain. NEUROLOGIC: Denies problems with vision or speech. No frequent, severe headaches. No numbness, tingling or weakness in any extremities. Denies Unit #: [id number] #: [id number] Patient: TANI DAVIS loss of bladder or bowel control. PHYSICAL EXAMINATION GENERAL: She is awake, alert, and oriented in no acute distress. VITAL SIGNS: Temperature 99.0, heart rate 102, respirations 16, blood pressure 121/88. HEIGHT: 5 feet 8. WEIGHT: 180 pounds. SKIN: Warm and dry without rash or lesion. HEENT: Normocephalic. TMs not viewed. Oral and nasal passages clear. Conjunctivae clear. PERRLA. EOMs intact. NECK: Supple without lymphadenopathy or thyromegaly. HEART: Regular rate and rhythm without murmur. LUNGS: Clear. ABDOMEN: Soft, nontender. : Not done. EXTREMITIES: No evidence of cyanosis, clubbing or edema. Moves all without focal deficit. NEUROLOGICAL: Grossly within normal limits. Cranial Nerves: II: Visual torres are intact. III, IV AND : Extraocular movements are intact. Pupils are equal, round and reactive to light. V: Facial sensation is grossly normal. VII: Facial movements and expression are normal. VIII: Auditory acuity grossly intact. IX, X: Uvula is midline. Phonation is normal. XI: Patient shrugs shoulders and turns head normally. XII: Tongue protrudes in the midline. Sensory and Motor Function: Sensory and motor sensation is grossly normal. Motor: moves all extremities well. IMPRESSION 1. Psychiatric admission. 2. Obesity. 3. Methamphetamine use. RECOMMENDATIONS PSYCHIATRIC: Per psychiatrist. MEDICAL: No contraindication to participate in this facility activities. MEDICAL PROGNOSIS Good. MEDICAL CONDITION Stable. Dictated by... Lisa Childers/jeffery TD: 01/28/2017 14:46 JOB #: [id number] Unit #: [id number] #: [id number] Patient: TANI DAVIS HISTORY AND PHYSICAL Page 1 of 1 X HARIS BERKOWITZ APRN HISTORY AND PHYSICAL
[2017-01-29 11:19] LABS: BASOPHIL% 0.5 % (0-2.5); EOSINOPHIL# 0.3 X10e3 (0-0.7); EOSINOPHIL% 3.6 % (0.0-7.0); HEMATOCRIT 39.8 % (35.0-45.0); HEMOGLOBIN 13.4 gm/dL (12.0-16.0); LYMPHOCYTE# 2.3 X10e3 (1.0-3.5); LYMPHOCYTE% 26.5 % (17.0-45.0); MEAN CORPUSCULAR HGB CONC 33.7 g/dL (30-36); MEAN PLATELET VOLUME 7.2 FL (6.5-11.5); MONOCYTE# 0.7 X10e3 (0-1.0); MONOCYTE% 8.1 % (3.0-12.0); NEUTROPHIL# 5.3 X10e3 (1.5-7.1); NEUTROPHIL% 61.3 % (40-75); PLATELET COUNT 333 X10e3 (140-420); RED BLOOD COUNT 4.47 X10e (3.90-5.30); WHITE BLOOD COUNT 8.7 X10e3 (4.0-10.5)
[2017-01-29 11:31] LABS: DIFF IND NO
[2017-01-29 12:32] LABS: ALBUMIN SERUM 3.6 g/dL (3.5-5.0); BILIRUBIN,TOTAL 0.7 mg/dL (0.2-2.0); BUN/CREATININE RATIO 21.66; CALCIUM SERUM 8.9 mg/dL (8.4-10.2); CREATININE SERUM 0.6 mg/dL (0.6-1.4); GLOM FILT RATE Estimated 121.5 mL/min (>60); POTASSIUM 4.3 mmol/L (3.5-5.1); PROTEIN TOTAL SERUM 6.5 g/dL (6.0-8.3)
[2017-01-30 11:11] LABS: URINE APPEARANCE CLEAR; URINE BILIRUBIN NEG (NEG); URINE BLOOD NEG (NEG); URINE COLOR DK YELLOW; URINE GLUCOSE NEG (NEG); URINE KETONE TRACE (NEG); URINE LEUKOCYTE ESTERASE TRACE (NEG); URINE NITRATE NEG (NEG); URINE PH 6.5 (5-8); URINE PROTEIN NEG (NEG); URINE SPECIFIC GRAVITY 1.027 (1.003-1.035)
[2017-01-30 11:13] LABS: URINE BACTERIA AUWI 1+ (NEGATIVE); URINE SQUAMOUS EPITHELIAL CELL FEW /[HPF]
[2017-01-30 11:26] LABS: AMPHETAMINE POS (NEG); BARBITURATES NEG (NEG); BENZODIAZEPINES NEG (NEG); COCAINE NEG (NEG); MARIJUANA POS (NEG); OPIATES NEG (NEG); TRICYCLIC ANTIDEPRESSANTS NEG (NEG); U METHADONE NEG (NEG)
== END 2017-01-31 10:44 | DRG 885 ==
LOC: P2S 11:37
PROVIDERS: Psychiatry & Neurology Psychiatry
DX: F20.0 Paranoid schizophrenia (principal); F14.20 Cocaine dependence, uncomplicated; R45.851 Suicidal ideations; F15.20 Other stimulant dependence, uncomplicated; E66.9 Obesity, unspecified; F29 Unspecified psychosis not due to a substance or known physiological condition; F17.210 Nicotine dependence, cigarettes, uncomplicated
CPT/HCPCS: 80053; 80307; 81003; 82542; 84703; 85025; 90853